=== PATIENT | male | born 1990 | race Two or more races ===

== ENCOUNTER 2018-07-03 12:10 | Emergency (ER) | payer MEDICAID ==
[~2018-07-03] VITALS: Ht 177.8 cm; Wt 81.6 kg
[2018-07-03 12:30] VITALS: BP 138/99
[2018-07-03] MEDS ORDERED: SODIUM CHLORIDE 0.9% 1,000 ML IVB ONE (12:43)
[2018-07-03 14:19] LABS: Basophils # (auto) 0 uL; Eosinophils # (auto) 0 uL; Eosinophils % (auto) 0.1 % (0.0-7.0)
[2018-07-03 14:20] LABS: Basophils % (auto) 0.3 % (0.0-2.0); Hematocrit 52.8 % (41.0-53.0); Hemoglobin 18.3 g/dL (13.5-17.5); Lymphocytes # (auto) 1.7 uL; Lymphocytes % (auto) 11.8 % (10.0-50.0); Mean Corpuscular Hemoglobin 30.9 pg (28.0-32.0); Mean Corpuscular Hgb Conc. 34.8 g/dL (32.0-36.0); Mean Corpuscular Volume 88.9 fL (80.0-100.0); Monocytes # (auto) 1.1 uL; Monocytes % (auto) 7.6 % (0.0-12.0); Neutrophils # (auto) 11.8 uL; Neutrophils % (auto) 80.2 % (37.0-80.0); Nucleated Red Blood Cells % 0.2 %; Platelet Count (auto) 322 10^3/uL (140-450); Red Blood Cells 5.94 10^6/uL (4.5-5.90); Red Cell Distribution Width 13.4 % (11.8-14.3); White Blood Cell 14.7 10^3/uL (4.4-10.8)
[2018-07-03 14:36] LABS: Albumin 4.7 g/dL (3.4-5.0); Anion Gap 5 (5-15); Blood Urea Nitrogen 21 mg/dL (7-18); Calcium 9.3 mg/dL (8.5-10.1); Carbon Dioxide 27 mmol/L (21-32); Chloride 103 mmol/L (98-107); Glucose 109 mg/dL (74-106); Magnesium 2.3 mg/dL (1.6-2.6); Potassium 3.7 mmol/L (3.5-5.1); Sodium 135 mmol/L (136-145)
[2018-07-03 14:45] LABS: Alanine Aminotransferase 66 U/L (16-61); Alkaline Phosphatase 89 U/L (45-117); Aspartate Aminotransferase 50 U/L (15-37); BUN/Creatinine Ratio 22.8; Bilirubin, Total 0.8 mg/dL (0.2-1.0); Blood Alcohol < 3.0 mg/dL (0-5); GFR African American 125 mL/min; GFR Non-African American 103 mL/min; Total Protein 8.9 g/dL (6.4-8.2)
== END 2018-07-03 21:57 | disposition home or self-care (01) ==
LOC: ER 12:10 → EDBD 12:10 → ER 21:57
DX: F19.10 Other psychoactive substance abuse, uncomplicated (principal); R10.9 Unspecified abdominal pain; R11.10 Vomiting, unspecified; F17.210 Nicotine dependence, cigarettes, uncomplicated; F12.90 Cannabis use, unspecified, uncomplicated
CPT/HCPCS: 36415; 70450; 80053; 80320; 83735; 85025; 93005

== ENCOUNTER 2019-02-14 17:59 | Emergency (ER) | payer MEDICAID ==
[~2019-02-14] VITALS: Ht 180.3 cm; Wt 74.8 kg
[2019-02-14] MEDS ORDERED: ACETAMINOPHEN/CODEINE#3 (300/30mg) TAB PO ONE (21:00)
[2019-02-14 22:50] VITALS: BP 104/54
== END 2019-02-14 23:06 | disposition home or self-care (01) ==
LOC: ER 17:59
DX: S52.202A Unspecified fracture of shaft of left ulna, initial encounter for closed fracture (principal); F17.210 Nicotine dependence, cigarettes, uncomplicated; F12.10 Cannabis abuse, uncomplicated; Y04.2XXA Assault by strike against or bumped into by another person, initial encounter; Y93.89 Activity, other specified; Y92.89 Other specified places as the place of occurrence of the external cause; Y99.8 Other external cause status
CPT/HCPCS: 29125; 73090; 73130

== ENCOUNTER 2020-11-07 22:51 | Emergency (ER) | payer MEDICAID ==
[~2020-11-07] VITALS: Ht 180.3 cm; Wt 63.5 kg
[2020-11-07 22:54] VITALS: BP 117/65
[2020-11-07 23:31] LABS: Basophils # (auto) 0 10 ^3/uL (0-0.2); Basophils % (auto) 0.3 % (0.0-2.0); Eosinophils # (auto) 0.1 10 ^3/uL (0-0.8); Hematocrit 39.2 % (41.0-53.0); Hemoglobin 13.2 g/dL (13.5-17.5); Lymphocytes # (auto) 2.7 10 ^3/uL (0.4-5.4); Lymphocytes % (auto) 37.9 % (10.0-50.0); Mean Corpuscular Hemoglobin 30.3 pg (28.0-32.0); Mean Corpuscular Hgb Conc. 33.7 g/dL (32.0-36.0); Monocytes # (auto) 0.9 10 ^3/uL (0-1.3); Monocytes % (auto) 12.5 % (0.0-12.0); Neutrophils # (auto) 3.4 10 ^3/uL (1.6-8.6); Neutrophils % (auto) 48.3 % (37.0-80.0); Nucleated Red Blood Cells % 0.2 %; Platelet Count (auto) 199 10^3/uL (140-450); Red Blood Cells 4.35 10^6/uL (4.5-5.90); Red Cell Distribution Width 13.1 % (11.8-14.3)
[2020-11-08] LABS: Albumin 3.1 g/dL (3.4-5.0); Potassium 3.7 mmol/L (3.5-5.1)
[2020-11-08 00:05] LABS: BUN/Creatinine Ratio 13.7; Bilirubin, Total 0.3 mg/dL (0.2-1.0); Total Protein 7.7 g/dL (6.4-8.2)
== END 2020-11-08 02:17 | disposition left against medical advice (07) ==
LOC: ER 22:57
DX: N50.812 Left testicular pain (principal); Z53.21 Procedure and treatment not carried out due to patient leaving prior to being seen by health care provider
CPT/HCPCS: 36415; 76870; 80053; 83605; 85025

== ENCOUNTER 2020-12-01 11:59 | Emergency (ER) | payer MEDICAID ==
[~2020-12-01] VITALS: Ht 177.8 cm; Wt 68.0 kg
[2020-12-01] MEDS ORDERED: SODIUM CHLORIDE 0.9% 1,000 ML IV ONE ×2 (12:15)
[2020-12-01] MEDS ORDERED: ACETAMINOPHEN 325 MG TAB PO ONE ×2 (13:00→13:01)
[2020-12-01 13:05] LABS: Basophils # (auto) 0 10 ^3/uL (0-0.2); Basophils % (auto) 0.5 % (0.0-2.0); Eosinophils # (auto) 0.1 10 ^3/uL (0-0.8); Eosinophils % (auto) 2.3 % (0.0-7.0); Hematocrit 34.8 % (41.0-53.0); Hemoglobin 12.1 g/dL (13.5-17.5); Lymphocytes # (auto) 3.3 10 ^3/uL (0.4-5.4); Lymphocytes % (auto) 52.7 % (10.0-50.0); Mean Corpuscular Hgb Conc. 34.8 g/dL (32.0-36.0); Mean Corpuscular Volume 89.2 fL (80.0-100.0); Monocytes # (auto) 0.8 10 ^3/uL (0-1.3); Monocytes % (auto) 12.3 % (0.0-12.0); Neutrophils % (auto) 32.2 % (37.0-80.0); Nucleated Red Blood Cells % 0.2 %; Platelet Count (auto) 147 10^3/uL (140-450); Red Cell Distribution Width 13.3 % (11.8-14.3); White Blood Cell 6.3 10^3/uL (4.4-10.8)
[2020-12-01 13:10] VITALS: BP 102/63
[2020-12-01 13:17] LABS: Urine Bacteria NONE SEEN /hpf (None Seen); Urine Blood Negative /uL (Negative); Urine Mucus FEW (None Seen); Urine Specific Gravity 1.019 (1.001-1.035); Urine WBC 1 /hpf (0 - 3)
[2020-12-01 13:22] LABS: BUN/Creatinine Ratio 14.1; Calcium 7.6 mg/dL (8.5-10.1); Potassium 3.4 mmol/L (3.5-5.1)
[2020-12-01 13:25] LABS: Bilirubin, Total 0.2 mg/dL (0.2-1.0); Total Protein 7.3 g/dL (6.4-8.2)
== END 2020-12-01 15:57 | disposition home or self-care (01) ==
LOC: EDUNIT# 11:59 → ER 11:59 → EDBD 11:59 → ER 15:47
DX: F41.9 Anxiety disorder, unspecified (principal); R53.1 Weakness; F17.210 Nicotine dependence, cigarettes, uncomplicated; R51.9 Headache, unspecified; M25.512 Pain in left shoulder
CPT/HCPCS: 36415; 70450; 71250; 73060; 80053; 81001; 85025; 85049; 96360; 96361; 99285; J7030

== ENCOUNTER 2020-12-06 17:30 | Emergency (ER) | payer MEDICAID ==
[~2020-12-06] VITALS: Ht 180.3 cm; Wt 68.0 kg
[2020-12-06 17:30] VITALS: BP 122/68
== END 2020-12-06 20:18 | disposition home or self-care (01) ==
LOC: ER 17:30
DX: F41.9 Anxiety disorder, unspecified (principal); F12.10 Cannabis abuse, uncomplicated; F15.10 Other stimulant abuse, uncomplicated; F17.210 Nicotine dependence, cigarettes, uncomplicated

== ENCOUNTER 2021-05-06 10:22 | Emergency (ER) | payer MEDICAID ==
[~2021-05-06] VITALS: Ht 165.1 cm; Wt 52.6 kg
[2021-05-06 10:32] VITALS: BP 107/70
[2021-05-06] MEDS ORDERED: PANTOPRAZOLE 40 MG TAB PO ONE (12:00)
[2021-05-06] MEDS ORDERED: ONDANSETRON ODT 4 MG TAB PO ONE (12:00)
[2021-05-06 12:11] LABS: Basophils # (auto) 0 10 ^3/uL (0-0.2); Basophils % (auto) 0.6 % (0.0-2.0); Eosinophils # (auto) 0.1 10 ^3/uL (0-0.8); Eosinophils % (auto) 1.5 % (0.0-7.0); Hemoglobin 12.9 g/dL (13.5-17.5); Lymphocytes # (auto) 1.7 10 ^3/uL (0.4-5.4); Lymphocytes % (auto) 25.4 % (10.0-50.0); Mean Corpuscular Hemoglobin 30.4 pg (28.0-32.0); Mean Corpuscular Hgb Conc. 33.9 g/dL (32.0-36.0); Mean Corpuscular Volume 89.5 fL (80.0-100.0); Monocytes # (auto) 0.8 10 ^3/uL (0-1.3); Monocytes % (auto) 11.5 % (0.0-12.0); Neutrophils # (auto) 4.2 10 ^3/uL (1.6-8.6); Nucleated Red Blood Cells % 0.2 %; Red Blood Cells 4.25 10^6/uL (4.5-5.90); Red Cell Distribution Width 13.2 % (11.8-14.3); White Blood Cell 6.9 10^3/uL (4.4-10.8)
[2021-05-06 12:58] LABS: Calcium 8.9 mg/dL (8.5-10.1); Potassium 4.1 mmol/L (3.5-5.1)
[2021-05-06 13:04] LABS: Albumin 2.9 g/dL (3.4-5.0); BUN/Creatinine Ratio 16.7; Bilirubin, Total 0.4 mg/dL (0.2-1.0); Total Protein 8.2 g/dL (6.4-8.2)
== END 2021-05-06 13:16 | disposition home or self-care (01) ==
LOC: ER 10:22
DX: K29.00 Acute gastritis without bleeding (principal); F17.210 Nicotine dependence, cigarettes, uncomplicated; F12.10 Cannabis abuse, uncomplicated; F15.10 Other stimulant abuse, uncomplicated
CPT/HCPCS: 36415; 80053; 83690; 85025; Q0162

== ENCOUNTER 2022-08-12 21:55 | Emergency (ER) | payer MEDICAID ==
[~2022-08-12] VITALS: Ht 180.3 cm; Wt 65.5 kg
[2022-08-12 22:40] VITALS: BP 103/45
[2022-08-12] MEDS ORDERED: KETOROLAC TROMETH 60MG/2ML VIAL IM ONE (22:45)
[2022-08-12 23:40] LABS: Urine Bacteria NONE SEEN /hpf (None Seen); Urine Blood Negative /uL (Negative); Urine Mucus FEW (None Seen); Urine Specific Gravity 1.031 (1.001-1.035); Urine WBC 2 /hpf (0 - 3)
[2022-08-12 23:56] LABS: Alcohol, Urine < 3.0 mg/dL (0-10); Amphetamine Screen, Urine POSITIVE (NEGATIVE); Barbiturate Scree,Urine NEGATIVE (NEGATIVE); Cannabinoid Screen, Urine NEGATIVE (NEGATIVE); Opiate Scree,Urine NEGATIVE (NEGATIVE); Phencyclidine Screen, Urine NEGATIVE (NEGATIVE)
[2022-08-13 00:04] LABS: Benzodiazephine Screen, Urine NEGATIVE (NEGATIVE); Cocaine Screen, Urine NEGATIVE (NEGATIVE)
== END 2022-08-12 23:33 | disposition left against medical advice (07) ==
LOC: ER 21:55
DX: R10.9 Unspecified abdominal pain (principal); Z87.442 Personal history of urinary calculi; Z87.891 Personal history of nicotine dependence
CPT/HCPCS: 74176; 80307; 81001

== ENCOUNTER 2022-11-13 12:25 | Emergency (ER) | payer MEDICAID ==
[~2022-11-13] VITALS: Ht 180.3 cm; Wt 63.8 kg
[2022-11-13 13:34] LABS: Basophils # (auto) 0.1 10 ^3/uL (0-0.2); Basophils % (auto) 0.6 % (0.0-2.0); Eosinophils # (auto) 0.5 10 ^3/uL (0-0.8); Eosinophils % (auto) 4.5 % (0.0-7.0); Hematocrit 43.8 % (41.0-53.0); Hemoglobin 14.8 g/dL (13.5-17.5); Lymphocytes # (auto) 2.9 10 ^3/uL (0.4-5.4); Lymphocytes % (auto) 26.9 % (10.0-50.0); Mean Corpuscular Hemoglobin 30.6 pg (28.0-32.0); Mean Corpuscular Hgb Conc. 33.8 g/dL (32.0-36.0); Mean Corpuscular Volume 90.4 fL (80.0-100.0); Monocytes # (auto) 0.9 10 ^3/uL (0-1.3); Monocytes % (auto) 8.5 % (0.0-12.0); Neutrophils # (auto) 6.4 10 ^3/uL (1.6-8.6); Neutrophils % (auto) 59.5 % (37.0-80.0); Nucleated Red Blood Cells % 0.1 %; Red Blood Cells 4.85 10^6/uL (4.5-5.90); Red Cell Distribution Width 14.2 % (11.8-14.3); White Blood Cell 10.7 10^3/uL (4.4-10.8)
[2022-11-13 13:47] VITALS: BP 115/76
[2022-11-13 14:10] LABS: Urine Bacteria NONE SEEN /hpf (None Seen); Urine Blood Negative /uL (Negative); Urine Mucus FEW (None Seen); Urine Specific Gravity 1.022 (1.001-1.035); Urine WBC 1 /hpf (0 - 3)
[2022-11-13 14:17] LABS: Albumin 3.9 g/dL (3.4-5.0); Calcium 8.9 mg/dL (8.5-10.1); Potassium 4.1 mmol/L (3.5-5.1)
[2022-11-13 14:21] LABS: BUN/Creatinine Ratio 15.9 (10.0-20.0); Bilirubin, Total 0.6 mg/dL (0.2-1.0); Total Protein 10.4 g/dL (6.4-8.2)
[2022-11-13] MEDS ORDERED: DICYCLOMINE HCL 10 MG CAP PO ONE (14:30)
[2022-11-13 14:32] LABS: Alcohol, Urine < 3.0 mg/dL (0-10); Barbiturate Scree,Urine NEGATIVE (NEGATIVE); Benzodiazephine Screen, Urine NEGATIVE (NEGATIVE)
[2022-11-13 14:39] LABS: Amphetamine Screen, Urine NEGATIVE (NEGATIVE); Cannabinoid Screen, Urine POSITIVE (NEGATIVE); Cocaine Screen, Urine NEGATIVE (NEGATIVE); Opiate Scree,Urine NEGATIVE (NEGATIVE); Phencyclidine Screen, Urine NEGATIVE (NEGATIVE)
[2022-11-13] MEDS ORDERED: DOCU-94 PO (16:59)
[2022-11-13] MEDS ORDERED: LACT10SO3 PO (16:59)
== END 2022-11-13 18:19 | disposition home or self-care (01) ==
LOC: ER 12:25
DX: K59.00 Constipation, unspecified (principal); F41.9 Anxiety disorder, unspecified; F17.210 Nicotine dependence, cigarettes, uncomplicated; R10.33 Periumbilical pain; Z86.19 Personal history of other infectious and parasitic diseases; Z88.8 Allergy status to other drugs, medicaments and biological substances; Z91.048 Other nonmedicinal substance allergy status
CPT/HCPCS: 36415; 74176; 80053; 80307; 81001; 85025

== ENCOUNTER → 2023-04-06 | Emergency (ER) | payer MEDICAID ==
[~2023-04-06] VITALS: Ht 180.3 cm; Wt 63.5 kg
[~2023-04-06] MED LIST: AZITHROMYCIN 500MG/ 250ML 250 ML IV ONE; DOCU-94 PO; LACT10SO3 PO; MORPHINE SULFATE 4 MG/ML SYR/VIAL IM ONE; cefTRIAXone 1GM/50ML D5W 50 ML IV ONE
[2023-04-06 01:50] VITALS: PULSE 88; RESP 18; O2SAT 100
[2023-04-06 02:09] LABS: Basophils # (auto) 0.1 10 ^3/uL (0-0.2); Basophils % (auto) 0.8 % (0.0-2.0); Eosinophils # (auto) 0.2 10 ^3/uL (0-0.8); Eosinophils % (auto) 2.3 % (0.0-7.0); Hematocrit 40.6 % (41.0-53.0); Lymphocytes # (auto) 2.8 10 ^3/uL (0.4-5.4); Lymphocytes % (auto) 38.9 % (10.0-50.0); Mean Corpuscular Hgb Conc. 34.5 g/dL (32.0-36.0); Mean Corpuscular Volume 92.6 fL (80.0-100.0); Monocytes # (auto) 0.9 10 ^3/uL (0-1.3); Monocytes % (auto) 12.1 % (0.0-12.0); Neutrophils # (auto) 3.2 10 ^3/uL (1.6-8.6); Neutrophils % (auto) 45.9 % (37.0-80.0); Nucleated Red Blood Cells % 0.1 %; Red Blood Cells 4.39 10^6/uL (4.5-5.90); Red Cell Distribution Width 15.8 % (11.8-14.3); White Blood Cell 7.1 10^3/uL (4.4-10.8)
[2023-04-06 02:18] LABS: Alanine Aminotransferase 45 U/L (7-40); Albumin 4.2 g/dL (3.2-4.8); Alkaline Phosphatase 138 U/L (46-116); Anion Gap 7 (5-15); Aspartate Aminotransferase 43 U/L (13-40); BUN/Creatinine Ratio 16.7 (10.0-20.0); Bilirubin, Total 0.4 mg/dL (0.2-1.0); Blood Alcohol < 3.0 mg/dL (<10); Blood Urea Nitrogen 16 mg/dL (9-23); Carbon Dioxide 25 mmol/L (20-30); Chloride 106 mmol/L (98-107); Glucose 91 mg/dL (74-106); Lipase 65 U/L (12-53); Potassium 4.3 mmol/L (3.5-5.1); Sodium 138 mmol/L (136-145); Total Protein 8.4 g/dL (5.7-8.2)
[2023-04-06 02:19] LABS: Acetaminophen < 2.0 UG/ML (10.0-20.0); Salicylate < 3.0 mg/dL (2.8-20.0)
[2023-04-06 06:12] VITALS: BP 116/71; PULSE 60; RESP 18; O2SAT 99
== END | disposition home or self-care (01) ==
LOC: EDUNIT# 00:14 → EDBD 00:19 → ER 00:19
DX: K85.10 Biliary acute pancreatitis without necrosis or infection (principal); J18.9 Pneumonia, unspecified organism; R91.8 Other nonspecific abnormal finding of lung field; F17.210 Nicotine dependence, cigarettes, uncomplicated; F12.10 Cannabis abuse, uncomplicated; F15.10 Other stimulant abuse, uncomplicated; Z88.6 Allergy status to analgesic agent
CPT/HCPCS: 36415; 74176; 80053; 80320; 80329; 83690; 85025; 96372; 99285; J0456; J0696; J2270

== ENCOUNTER 2023-05-23 13:06 | Inpatient (IN) | payer MEDICAID ==
[~2023-05-23] VITALS: Ht 172.7 cm; Wt 61.3 kg
[~2023-05-23 13:06] MED LIST changes: -AZITHROMYCIN 500MG/ 250ML 250 ML IV ONE; -MORPHINE SULFATE 4 MG/ML SYR/VIAL IM ONE; -cefTRIAXone 1GM/50ML D5W 50 ML IV ONE
[2023-05-23] MEDS ORDERED: fentaNYL CITRATE 100 MCG/2 ML VL IV ONE ×3 (13:15→16:00)
[2023-05-23] MEDS ORDERED: ONDANSETRON HCL 4 MG/2 ML VIAL IV ONE (13:15)
[2023-05-23] MEDS ORDERED: SODIUM CHLORIDE 0.9% 1,000 ML IV ONE ×2 (13:15→15:45)
[2023-05-23 13:28] VITALS: O2SAT 99
[2023-05-23 13:58] LABS: Basophils # (auto) 0 10 ^3/uL (0-0.2); Basophils % (auto) 0.5 % (0.0-2.0); Eosinophils # (auto) 0.1 10 ^3/uL (0-0.8); Eosinophils % (auto) 1.6 % (0.0-7.0); Hematocrit 43.9 % (41.0-53.0); Hemoglobin 14.7 g/dL (13.5-17.5); Lymphocytes # (auto) 2.1 10 ^3/uL (0.4-5.4); Lymphocytes % (auto) 30.1 % (10.0-50.0); Mean Corpuscular Hgb Conc. 33.5 g/dL (32.0-36.0); Mean Corpuscular Volume 92.7 fL (80.0-100.0); Monocytes # (auto) 0.6 10 ^3/uL (0-1.3); Monocytes % (auto) 8.8 % (0.0-12.0); Neutrophils # (auto) 4.1 10 ^3/uL (1.6-8.6); Nucleated Red Blood Cells % 0.1 %; Red Blood Cells 4.74 10^6/uL (4.5-5.90); Red Cell Distribution Width 13.7 % (11.8-14.3); White Blood Cell 6.9 10^3/uL (4.4-10.8)
[2023-05-23 14:16] LABS: Alanine Aminotransferase 106 U/L (7-40); Albumin 4.3 g/dL (3.2-4.8); Alkaline Phosphatase 182 U/L (46-116); Anion Gap 4 (5-15); Aspartate Aminotransferase 96 U/L (13-40); Bilirubin, Total 0.9 mg/dL (0.2-1.0); Blood Urea Nitrogen 13 mg/dL (9-23); Calcium 9.1 mg/dL (8.7-10.4); Carbon Dioxide 29 mmol/L (20-30); Chloride 103 mmol/L (98-107); Glucose 90 mg/dL (74-106); Potassium 4.6 mmol/L (3.5-5.1); Sodium 136 mmol/L (136-145); Total Protein 8.3 g/dL (5.7-8.2)
[2023-05-23 14:23] LABS: Lipase 1638 U/L (12-53)
[2023-05-23] MEDS ORDERED: SODIUM CHLORIDE 0.9% 1,000 ML IV SCH (15:45)
[2023-05-23] MEDS ORDERED: MORPHINE SULFATE INJ 2 MG/ml SYRG IV PRN (15:45)
[2023-05-23] MEDS ORDERED: ONDANSETRON HCL 4 MG/2 ML VIAL IV PRN (15:45)
[2023-05-23] MEDS ORDERED: PANTOPRAZOLE 40 MG/10 ML VIAL INJ IV ONE (15:45)
[2023-05-23] MEDS ORDERED: ACETAMINOPHEN 325 MG TAB PO PRN (15:45)
[2023-05-23 15:58] VITALS: BP 118/68; PULSE 56; RESP 20
[2023-05-24] MEDS ORDERED: PANTOPRAZOLE 40 MG/10 ML VIAL INJ IV SCH (10:00)
== END 2023-05-23 18:53 | disposition left against medical advice (07) ==
LOC: ER 13:06 → EDBD 13:06 → OVERFLOW 15:36
PROVIDERS: ADMIT Nurse Practitioner Family; ATTEND Nurse Practitioner Family
DX: K81.0 Acute cholecystitis (principal); K85.90 Acute pancreatitis without necrosis or infection, unspecified; Z53.29 Procedure and treatment not carried out because of patient's decision for other reasons; F17.210 Nicotine dependence, cigarettes, uncomplicated; Z83.3 Family history of diabetes mellitus; Z88.8 Allergy status to other drugs, medicaments and biological substances; Z21 Asymptomatic human immunodeficiency virus [HIV] infection status
CPT/HCPCS: 36415; 71045; 74176; 76705; 80053; 83605; 83690; 84484; 85025; 86850; 86900; 86901; C9113; G0378; J2405

== ENCOUNTER → 2023-09-28 | Emergency (ER) | payer MEDICAID | LOC: ER 01:14 | DX: R06.6 Hiccough (principal); Z53.21 Procedure and treatment not carried out due to patient leaving prior to being seen by health care provider ==

== ENCOUNTER 2025-03-04 01:29 | Inpatient (IN) | payer MEDICAID ==
[~2025-03-04] VITALS: Ht 172.7 cm; Wt 64.4 kg
--- NOTE | 2025-03-04 01:53 | ECG ---
[facility] Test Date: 2025-03-04 Test Time: 01:38:52 Pat Name: GARDENIA MCGHEE Department: [facility] ED Patient ID: [id number] Room: 0217 Gender: M First Aid Officer: MARGARET : 1990 Requested By: YVAN GARCIA Order Number: [id number] Reading MD: Norbert Moody Measurements Intervals [place] Rate: 144 P: 86 WA: 167 QRS: 102 QRSD: 89 T: -60 QT: 287 QTc: 444 Interpretive Statements Sinus tachycardia Right axis deviation Borderline repolarization abnormality Electronically Signed On 03-06-2025 22:10:41 PDT by Norbert Moody Please click the below link to view image of tracing.
[2025-03-04] MEDS: PIPERACILLIN-TAZOB 3.375GM 100 ML IV ONE (02:00)
[2025-03-04 02:02] VITALS: PULSE 58; RESP 14; O2SAT 95
--- NOTE | 2025-03-04 02:03 | ED.PDOC ---
Altered Mental Status HPI Comments 34-year-old male came to ER via EMS for altered level of consciousness. Patient last seen normal at 1600 hours. Was in his room when he was heard screaming. Patient was seen unresponsive and altered, responsive to sternal stimuli. Patient was said to be taking erythromycin for a urinary/ testicular infection. On scene patient is febrile to 101.6 F, tachycardic at the 130s, with a blood pressure of 180/63 mmHg. At this time, patient is aware only to his name. Chief Complaint: ALOC Time Seen by MD: 02:03 Primary Care Provider: NONE Reviewed Notes: Plateman Notes Allergies: Coded Allergies: Ethanol (Verified Allergy, Unknown, 08/12/22) Guaifenesin (Verified Allergy, Unknown, 08/12/22) Home Meds Active Scripts Docusate Sodium (Colace) 100 Mg Cap, 1 CAP PO BID, #30 CAP Prov:CARROLL CALDERA PAC 11/13/22 Lactulose (Lactulose) 10 Gm/15 Ml Yuni, 10 GM PO BIDP PRN, #150 ML Prov:CARROLL CALDERA PAC 11/13/22 Information Source: Emergency Med Personnel Mode of Arrival: EMS Severity: Unable to Care for Self, Unresponsive Timing: Minutes Duration: Since onset Prehospital treatment: Oxygen Quality: Decreased Alertness, Change in Behavior Past Medical History PAST MEDICAL HISTORY: Anxiety Surgical History: Denies all surgeries Family History Family History: Family hx of DM Social History Smoker: Cigarettes, Less Than 1 Pack/Day Alcohol: Occasionally Drugs: Marijuana, Methamphetamine Lives In: Home Unable to Obtain due to: Altered Mental Status Physical Exam General Appearance: No Apparent Distress, Normal HEENT: Normal ENT Inspection, Pharynx Normal, TMs Normal Neck: Full Range of Motion, Non-Tender, Normal, Normal Inspection Respiratory: Chest Non-Tender, Lungs Clear, No Accessory Muscle Use, No Respiratory Distress, Normal Breath Sounds Cardiovascular: No Edema, No JVD, No Murmur, No Gallop, Normal Peripheral Pulses, Regular Rate/Rhythm Breast Exam: Deferred Gastrointestinal: No Organomegaly, Non Tender, No Pulsatile Mass, Normal Bowel Sounds, Soft Genitalia: Deferred Pelvic: Deferred Rectal: Deferred Extremities: No calf tenderness, Normal capillary refill, Normal inspection, Normal range of motion, Non-tender, No pedal edema Musculoskeletal : Apperance: Normal Neurologic: Alert, inventory accountant II-XII nml as Tested, No Motor Deficits, Normal Affect, Normal Mood, No Sensory Deficits Cerebellar Function: Normal Reflexes: Normal Skin: Dry, Normal Color, Warm Lymphatic: No Adenopathy Was a procedure done? Was a procedure done?: No Differential Diagnosis (ALOC) Differential Diagnosis: Encephalopathy, Hypoxemia, Drug Overdose, ETOH Intoxication X-Ray, Labs, Meds, VS Vital Signs Date Time Temp Pulse Resp B/P (MAP) Pulse Ox O2 Delivery O2 Flow Rate FiO2 03/04/25 01:59 128 03/04/25 01:42 101.6 136 17 108/76 96 101.6 03/04/25 01:38 144 Lab Test 03/04/25 02:22 03/04/25 02:17 Range/Units White Blood Count 8.3 4.4-10.8 10^3/uL Red Blood Count 4.66 4.5-5.90 10^6/uL Hemoglobin 14.1 13.5-17.5 g/dL Hematocrit 41.5 41.0-53.0 % Mean Corpuscular Volume 89.0 80.0-100.0 fL Mean Corpuscular Hemoglobin 30.2 28.0-32.0 pg Mean Corpuscular Hemoglobin Concent 34.0 32.0-36.0 g/dL Red Cell Distribution Width 13.8 11.8-14.3 % Platelet Count 284 140-450 10^3/uL Mean Platelet Volume 6.5 L 6.9-10.8 fL Neutrophils (%) (Auto) 62.4 37.0-80.0 % Lymphocytes (%) (Auto) 25.2 10.0-50.0 % Monocytes (%) (Auto) 11.2 0.0-12.0 % Eosinophils (%) (Auto) 0.8 0.0-7.0 % Basophils (%) (Auto) 0.4 0.0-2.0 % Neutrophils # (Auto) 5.2 1.6-8.6 10 ^3/uL Lymphocytes # (Auto) 2.1 0.4-5.4 10 ^3/uL Monocytes # (Auto) 0.9 0-1.3 10 ^3/uL Eosinophils # (Auto) 0.1 0-0.8 10 ^3/uL Basophils # (Auto) 0 0-0.2 10 ^3/uL Nucleated Red Blood Cells 0.3 % Sodium Level 141 136-145 mmol/L Potassium Level 4.3 3.5-5.1 mmol/L Chloride Level 105 98-107 mmol/L Carbon Dioxide Level 22 20-31 mmol/L Anion Gap 14 5-15 Blood Urea Nitrogen 13 9-23 mg/dL Creatinine 1.16 0.700-1.30 mg/dL Glomerular Filtration Rate Calc 84 >90 mL/min BUN/Creatinine Ratio 11.2 10.0-20.0 Serum Glucose 90 74-106 mg/dL Lactic Acid Level 5.9 *H 0.4-2.0 mmol/L Calcium Level 8.6 L 8.7-10.4 mg/dL Total Bilirubin 0.7 0.2-1.0 mg/dL Aspartate Amino Transferase (AST) 44 H 13-40 U/L Alanine Aminotransferase (ALT) 47 H 7-40 U/L Alkaline Phosphatase 95 46-116 U/L Total Protein 8.9 H 5.7-8.2 g/dL Albumin 4.2 3.2-4.8 g/dL Lipase 30 12-53 U/L Urine Color Yellow Yellow Urine Clarity Clear Clear Urine pH 6.0 5.0-9.0 Urine Specific [place] 1.024 1.001-1.035 Urine Protein Trace H Negative Urine Ketones Negative Negative Urine Blood Trace H Negative /uL Urine Nitrite Negative Negative Urine Bilirubin Negative Negative Urine Urobilinogen Normal Negative mg/dL Urine Leukocyte Esterase 3+ Negative /uL Urine RBC 3 0 - 3 /hpf Urine Microscopic WBC 63 H 0-3 /HPF Urine Squamous Epithelial Cells Few <5 /hpf Urine Bacteria None seen None Seen /hpf Urine Mucus Few None Seen Urine Glucose Normal Normal mg/dL Urine Opiates Screen Pos NEGATIVE Urine Fentanyl Screen Neg NEGATIVE Urine Barbiturates Screen Neg NEGATIVE Urine Phencyclidine Screen Neg NEGATIVE Urine Amphetamines Screen Pos NEGATIVE Urine Benzodiazepines Screen Neg NEGATIVE Urine Cocaine Screen Neg NEGATIVE Urine Cannabinoids Screen Pos NEGATIVE Current Medications Medications (Trade) Dose Ordered Sig/Jose Route Start Time Stop Time Status Last Admin Sodium Chloride 1,000 ml @ 1,000 mls/hr Q1H ONCE IVB 03/04/25 02:00 03/04/25 02:59 DC 03/04/25 02:17 Acetaminophen (Ofirmev) 1,000 mg ONCE ONCE IV 03/04/25 02:00 03/04/25 02:01 DC 03/04/25 02:24 Piperacillin Sod/ Tazobactam Sod 100 ml @ 100 mls/hr ONCE ONCE IV 03/04/25 02:00 03/04/25 02:59 DC 03/04/25 02:00 Sodium Chloride 1,000 ml @ 1,000 mls/hr Q1H ONCE IV 03/04/25 03:15 03/04/25 04:14 DC 03/04/25 03:43 Sodium Chloride 1,000 ml @ 1,000 mls/hr Q1H ONCE IV 03/04/25 04:15 03/04/25 05:14 03/04/25 04:17 Time of 1ST Reevaluation: 01:57 Reevaluation 1ST: Unchanged Patient Education/Counseling: Pt Unresponsive Family Education/Counseling: No Family Present SEPSIS Sepsis Screen Date sepsis recognized/suspect: Mar 04, 2025 Time Sepsis recognized/suspect: 014 Recent Procedure: No On Antibiotic Therapy: Yes Respiratory Rate >20: No Heart Rate >90: Yes Temp<36 C (96.8 F) or >38.3 C: Yes SBP <90 or MAP <65 mmHG: No New Acute Mental Status Change: Yes Is the patient on CPAP, BIPAP,: No Physician Orders Ct Ab Pel With Iv Con Only (03/04/25 01:49) Blood Culture (03/04/25 01:49) Head Without Contrast (03/04/25 01:49) Straight Cath Patient (03/04/25 01:49) Yskes Catheters (03/04/25 ) Insert Sykes Catheter QSHIFT (03/04/25 02:13) Sodium Chloride 0.9% (03/04/25 04:15) Azithromycin 500mg/ 250ml (Zithromax 50 (03/04/25 04:30) Vital Signs Date Time Temp Pulse Resp B/P (MAP) Pulse Ox O2 Delivery O2 Flow Rate FiO2 03/04/25 01:59 128 03/04/25 01:42 101.6 136 17 108/76 96 101.6 03/04/25 01:38 144 Laboratory Tests Test 03/04/25 02:22 Lactic Acid Level 5.9 mmol/L (0.4-2.0) *H White Blood Count 8.3 10^3/uL (4.4-10.8) Medications Medications Dose Ordered Sig/Jose Route Start Time Stop Time Status Last Admin Dose Admin Acetaminophen 1,000 mg ONCE ONCE IV 03/04/25 02:00 03/04/25 02:01 DC 03/04/25 02:24 Piperacillin Sod/ Tazobactam Sod 100 ml @ 100 mls/hr ONCE ONCE IV 03/04/25 02:00 03/04/25 02:59 DC 03/04/25 02:00 Sodium Chloride 1,000 ml @ 1,000 mls/hr Q1H ONCE IV 03/04/25 03:15 03/04/25 04:14 DC 03/04/25 03:43 Sodium Chloride 1,000 ml @ 1,000 mls/hr Q1H ONCE IV 03/04/25 04:15 03/04/25 05:14 03/04/25 04:17 Sodium Chloride 1,000 ml @ 1,000 mls/hr Q1H ONCE IVB 03/04/25 02:00 03/04/25 02:59 DC 03/04/25 02:17 Departure 1 Departure Time of Disposition: 04:30 Impression: Primary Impression: Metabolic encephalopathy Additional Impressions: Right lower lobe consolidation Pneumonitis UTI (urinary tract infection) Disposition: ADMITTED INPATIENT Admit to: ICU Condition: Guarded Discharged With: Self, Relative Comments 44-year-old male with a history of recent epididymitis and methamphetamine abuse now with altered mental status and fever. Lab work reviewed. Urinalysis shows UTI with 3+ leukocytes. Lactic acid high at 5.9. White blood cell count normal at 8.3. CT of the abdomen and pelvis shows a right lower lobe lung consolidation consistent with pneumonia. Patient was given IV fluid resuscitation and IV Zosyn and azithromycin antibiotics. Patient will need to be admitted for supportive care and further workup. Critical Care Note Critical Care Time?: Yes (35 min-critical care time only) Critical care comment: Total critical care time: Approximately 36 minutes Due to a high probability of clinically significant, life threatening deterioration, the patient required my highest level of preparedness to intervene emergently and I personally spent this critical care time directly and personally managing the patient. This critical care time included obtaining a history; examining the patient; pulse oximetry; ordering and review of studies; arranging urgent treatment with development of a management plan; evaluation of patient's response to treatment; frequent reassessment; and, discussions with other providers. This critical care time was performed to assess and manage the high probability of imminent, life-threatening deterioration that could result in multi-organ failure. It was exclusive of separately billable procedures and treating other patients. Stability Stability form required: No Heart Score Heart Score: Heart Score Response (Comments) Value History N/A 0 EKG N/A 0 Age N/A 0 Risk Factors N/A 0 Troponin N/A 0 Total 0 I personally scribed for YVAN GARCIA MD ([email or web address]) on 03/04/25 at 02:03. Electronically submitted by Tonny Pinon ([email or web address]). YVAN GARCIA MD Mar 04, 2025 02:03
[2025-03-04] MEDS: SODIUM CHLORIDE 0.9% 1,000 ML IVB ONE (02:17)
[2025-03-04] MEDS: ACETAMINOPHEN IV 1000 MG/100ML (10MG/ML) IV ONE (02:24)
[2025-03-04 02:59] LABS: Albumin 4.2 g/dL (3.2-4.8); Alkaline Phosphatase 95 U/L (46-116); BUN/Creatinine Ratio 11.2 (10.0-20.0); Blood Urea Nitrogen 13 mg/dL (9-23); Carbon Dioxide 22 mmol/L (20-31); Glucose 90 mg/dL (74-106); Lipase 30 U/L (12-53)
[2025-03-04 03:00] LABS: Bilirubin, Total 0.7 mg/dL (0.2-1.0)
[2025-03-04 03:01] LABS: Urine Protein, UAD TRACE (Negative)
[2025-03-04 03:01] LABS: Hematocrit 41.5 % (41.0-53.0); Hemoglobin 14.1 g/dL (13.5-17.5); Mean Corpuscular Hemoglobin 30.2 pg (28.0-32.0); Mean Corpuscular Volume 89.0 fL (80.0-100.0); Nucleated Red Blood Cells % 0.3 %
[2025-03-04 03:04] LABS: Lactic Acid w/Reflex 5.9 mmol/L (0.4-2.0)
[2025-03-04 03:05] LABS: Alanine Aminotransferase 47 U/L (7-40); Calcium 8.6 mg/dL (8.7-10.4); Total Protein 8.9 g/dL (5.7-8.2)
[2025-03-04 03:16] LABS: Anion Gap 14 (5-15); Chloride 105 mmol/L (98-107); Potassium 4.3 mmol/L (3.5-5.1); Sodium 141 mmol/L (136-145)
[2025-03-04] MEDS: IOHEXOL 300 MG/ML 100ML BOTTLE IJ ONE (03:37)
[2025-03-04 03:39] LABS: Cannabinoid Screen, Urine Pos (NEGATIVE); Opiate Scree,Urine Pos (NEGATIVE)
[2025-03-04 03:40] LABS: Amphetamine Screen, Urine Pos (NEGATIVE); Barbiturate Scree,Urine Neg (NEGATIVE); Benzodiazephine Screen, Urine Neg (NEGATIVE); Cocaine Screen, Urine Neg (NEGATIVE); Phencyclidine Screen, Urine Neg (NEGATIVE)
[2025-03-04] MEDS: SODIUM CHLORIDE 0.9% 1,000 ML IV ONE ×4 (03:43→10:58)
--- NOTE | 2025-03-04 03:44 | DVH ---
EXAM: CT HEAD WITHOUT CONTRAST INDICATION: ALOC, fever TECHNIQUE: CT of the head without intravenous contrast. Radiation Dose : 1. Head: CT Dose: CTDI volume is 50.77 mGy. Dose-length product is 1098.92 mGy*cm The dose indicators for CT are the volume Computed Tomography (CT) Dose Index (CTDIvol) and the Dose Length Product (DLP), and are measured in units of mGy and mGy-cm, respectively. These indicators are not patient dose, but values generated from the CT scanner acquisition factors. The report includes radiation exposure data for exposures received during this examination. COMPARISON: HEAD WITHOUT CONTRAST on DOS: 12/01/20 FINDINGS: There is no evidence of acute intracranial hemorrhage, extra-axial collection, mass effect, midline s hift, herniation or hydrocephalus. The ventricles, sulci and cisterns are age appropriate. The rodriguez-white differentiation is intact. Left sphenoid and ethmoid mucosal sinus disease. The remaining visualized paranasal sinuses and masto id air cells are clear. The surrounding soft tissues and osseous structures are unremarkable. IMPRESSION: 1. No acute intracranial abnormality. Radiation optimization: All CT scans at this facility use at least one of these dose optimization liborio hniques: automated exposure control mA and/or kV adjustment per patient size (includes targeted exam s where dose is matched to clinical indication) or iterative reconstruction.
--- NOTE | 2025-03-04 04:16 | DVH ---
Exam: CT CT AB PEL WITH IV CON ONLY History: abd pain, fever Comparison Study: Scan of the abdomen pelvis performed on 05/23/2023 Technique: Multidetector spiral CT of the abdomen was performed from lung bases to pubic symphysis. A xial imaging was performed with intravenous contrast following the uneventful administration of 100 m l Omnipaque 300. Coronal and sagittal multiplanar reformats were obtained from the axial data set by the technologist. Radiation Dose : 1. Abdomen/Pelvis: CTDIvol 5.1 mGy, DLP 300.8 mGy*cm. Findings: There is artifact from the patient's arms which limits evaluation. Lung Bases: There is right lower lobe consolidation. Visualized portions of the heart and pericardium are unremarkable. Liver: The liver is normal in size. No focal lesions. Gallbladder and Biliary Tree: The gallbladder is distended. No intrahepatic or extrahepatic biliary d uctal dilatation. Spleen: Multiple splenic calcifications noted. Pancreas: The pancreas enhances normally without evidence of mass. No pancreatic ductal dilatation. Calcifications noted either anterior to or within the pancreatic body. Adrenal Glands: Unremarkable Kidneys: Kidneys enhance symmetrically. No calculi or hydronephrosis. GI tract: The stomach is grossly normal in appearance.. No evidence of small bowel wall thickening or abnormal dilatation to suggest bowel obstruction. Diffuse stool throughout the colon. The appendix i s not visualized, however no inflammatory changes in the right lower quadrant to suggest acute append icitis. Peritoneum/mesentery/retroperitoneum. No evidence of free intraperitoneal air. No ascites. No evidenc e of suspicious lymphadenopathy. Abdominal Wall: Unremarkable. Vasculature: Abdominal aorta and main branches are unremarkable. Normal vascular enhancement. Urinary Bladder: There is a Sykes catheter in the urinary bladder. Pelvic Organs: Unremarkable Musculoskeletal: No aggressive focal bony lesions, acute fractures or dislocation. IMPRESSION: 1. Study limited by patient's arms which causes artifact. 2. Right lower lobe consolidation which could reflect pneumonia in the appropriate clinical setting. 3. Diffuse stool throughout the colon. 4. Old granulomatous disease in the spleen. 5. Distended gallbladder. 6. Calcifications either anterior to or within the pancreatic tail. Findings could reflect sequelae of chronic pancreatitis if within the pancreas.
--- NOTE | 2025-03-04 04:57 | DVHHPRES ---
History of Present Illness Resident Creating Document: JOSEFINA MONTENEGRO RESIDENT History of Present Illness Paresh Hernandez is a 34-year-old male patient who presents to ED brought via EMS due to altered level of consciousness. Due to clinical status, obtained information from EMR. Patient was last seen normal on 03/03/2025 at 4:00 p.m.. He was then found unresponsive in altered only responding to sternal rub stimulus. Per EMR, patient was on erythromycin due to urinary tract infection versus testicular infection. On scene he was found febrile, tachycardic and with hypertension. In ED his Jaelyn score was nine, we will respond to painful stimulus (with scream and become verbal when Sykes catheter was placed). Could not obtain review of systems due to clinical status. Past medical history: Anxiety, UTI versus testicular infection on erythromycin, questionable HIV/syphilis infection Surgical history: Denies Family history: All his family has diabetes Social history: Lives with family. UDS positive for methamphetamine, cannabinoids and opiates. Per chart he smokes less than one pack of cigarettes a day. Allergies: Ethanol, guaifenesin Home medication: Bisillin, Cabenuva, erythromycin Patient seen and examined at bedside. Currently his blood pressure is trending low, vasopressors on standby, still somnolent, responds to sternal rub in partially verbalizes answers. Currently patient is ICU status. Past Medical History Per HPI Past Surgical History Per HPI Family History Per HPI Past Social History Per HPI Review of Systems Review of Systems Per HPI Allergies: Coded Allergies: Ethanol (Verified Allergy, Unknown, 08/12/22) Guaifenesin (Verified Allergy, Unknown, 08/12/22) Exam Vital Signs Vital Signs Date Time Temp Pulse Resp B/P (MAP) Pulse Ox O2 Delivery O2 Flow Rate FiO2 03/04/25 01:59 128 03/04/25 01:42 101.6 17 108/76 96 101.6 Exam Patient lying in bed, in no acute distress General: Drowsy, somnolent, afebrile, mucosae are moist Cardiovascular: Normal S1 and S2. No murmurs, gallops or rubs Respiratory: Normal ventilation mechanics. Clear lung sounds on auscultation Abdomen: Soft, diffuse tenderness in all abdomen, no organomegaly, normal bowel sounds MSK/skin: Mobilizes 4 limbs. Skin is dry and warm Neurological: Oriented in 1 spheres (only in person), Jaelyn score nine. No motor no sensitive deficits. Pupils are isocoric and reactive Labs/Xrays Labs Test 03/04/25 04:25 03/04/25 02:22 03/04/25 02:17 Range/Units White Blood Count 8.3 4.4-10.8 10^3/uL Red Blood Count 4.66 4.5-5.90 10^6/uL Hemoglobin 14.1 13.5-17.5 g/dL Hematocrit 41.5 41.0-53.0 % Mean Corpuscular Volume 89.0 80.0-100.0 fL Mean Corpuscular Hemoglobin 30.2 28.0-32.0 pg Mean Corpuscular Hemoglobin Concent 34.0 32.0-36.0 g/dL Red Cell Distribution Width 13.8 11.8-14.3 % Platelet Count 284 140-450 10^3/uL Mean Platelet Volume 6.5 L 6.9-10.8 fL Neutrophils (%) (Auto) 62.4 37.0-80.0 % Lymphocytes (%) (Auto) 25.2 10.0-50.0 % Monocytes (%) (Auto) 11.2 0.0-12.0 % Eosinophils (%) (Auto) 0.8 0.0-7.0 % Basophils (%) (Auto) 0.4 0.0-2.0 % Neutrophils # (Auto) 5.2 1.6-8.6 10 ^3/uL Lymphocytes # (Auto) 2.1 0.4-5.4 10 ^3/uL Monocytes # (Auto) 0.9 0-1.3 10 ^3/uL Eosinophils # (Auto) 0.1 0-0.8 10 ^3/uL Basophils # (Auto) 0 0-0.2 10 ^3/uL Nucleated Red Blood Cells 0.3 % Sodium Level 141 136-145 mmol/L Potassium Level 4.3 3.5-5.1 mmol/L Chloride Level 105 98-107 mmol/L Carbon Dioxide Level 22 20-31 mmol/L Anion Gap 14 5-15 Blood Urea Nitrogen 13 9-23 mg/dL Creatinine 1.16 0.700-1.30 mg/dL Glomerular Filtration Rate Calc 84 >90 mL/min BUN/Creatinine Ratio 11.2 10.0-20.0 Serum Glucose 90 74-106 mg/dL Calcium Level 8.6 L 8.7-10.4 mg/dL Total Bilirubin 0.7 0.2-1.0 mg/dL Aspartate Amino Transferase (AST) 44 H 13-40 U/L Alanine Aminotransferase (ALT) 47 H 7-40 U/L Alkaline Phosphatase 95 46-116 U/L Total Protein 8.9 H 5.7-8.2 g/dL Albumin 4.2 3.2-4.8 g/dL Lipase 30 12-53 U/L Urine Color Yellow Yellow Urine Clarity Clear Clear Urine pH 6.0 5.0-9.0 Urine Specific [place] 1.024 1.001-1.035 Urine Protein Trace H Negative Urine Ketones Negative Negative Urine Blood Trace H Negative /uL Urine Nitrite Negative Negative Urine Bilirubin Negative Negative Urine Urobilinogen Normal Negative mg/dL Urine Leukocyte Esterase 3+ Negative /uL Urine RBC 3 0 - 3 /hpf Urine Microscopic WBC 63 H 0-3 /HPF Urine Squamous Epithelial Cells Few <5 /hpf Urine Bacteria None seen None Seen /hpf Urine Mucus Few None Seen Urine Glucose Normal Normal mg/dL Urine Opiates Screen Pos NEGATIVE Urine Fentanyl Screen Neg NEGATIVE Urine Barbiturates Screen Neg NEGATIVE Urine Phencyclidine Screen Neg NEGATIVE Urine Amphetamines Screen Pos NEGATIVE Urine Benzodiazepines Screen Neg NEGATIVE Urine Cocaine Screen Neg NEGATIVE Urine Cannabinoids Screen Pos NEGATIVE SEPSIS Sepsis Screen Date sepsis recognized/suspect: Mar 04, 2025 Time Sepsis recognized/suspect: 0149 Recent Procedure: No On Antibiotic Therapy: Yes Respiratory Rate >20: No Heart Rate >90: Yes Temp<36 C (96.8 F) or >38.3 C: Yes SBP <90 or MAP <65 mmHG: No New Acute Mental Status Change: Yes Is the patient on CPAP, BIPAP,: No Physician Orders Ct Ab Pel With Iv Con Only (03/04/25 01:49) Blood Culture (03/04/25 01:49) Head Without Contrast (03/04/25 01:49) Straight Cath Patient (03/04/25 01:49) Sykes Catheters (03/04/25 ) Insert Sykes Catheter QSHIFT (03/04/25 02:13) Sodium Chloride 0.9% (03/04/25 04:15) Azithromycin 500mg/ 250ml (Zithromax 50 (03/04/25 04:30) Vital Signs Date Time Temp Pulse Resp B/P (MAP) Pulse Ox O2 Delivery O2 Flow Rate FiO2 03/04/25 01:59 128 03/04/25 01:42 101.6 136 17 108/76 96 101.6 03/04/25 01:38 144 Laboratory Tests Test 03/04/25 02:22 03/04/25 04:25 Lactic Acid Level 5.9 mmol/L (0.4-2.0) *H Pending White Blood Count 8.3 10^3/uL (4.4-10.8) Medications Medications Dose Ordered Sig/Jose Route Start Time Stop Time Status Last Admin Dose Admin Acetaminophen 1,000 mg ONCE ONCE IV 03/04/25 02:00 03/04/25 02:01 DC 03/04/25 02:24 1,000 MG Piperacillin Sod/ Tazobactam Sod 100 ml @ 100 mls/hr ONCE ONCE IV 03/04/25 02:00 03/04/25 02:59 DC 03/04/25 02:00 100 MLS/HR Sodium Chloride 1,000 ml @ 1,000 mls/hr Q1H ONCE IV 03/04/25 03:15 03/04/25 04:14 DC 03/04/25 03:43 1,000 MLS/HR Sodium Chloride 1,000 ml @ 1,000 mls/hr Q1H ONCE IV 03/04/25 04:15 03/04/25 05:14 03/04/25 04:17 1,000 MLS/HR Sodium Chloride 1,000 ml @ 1,000 mls/hr Q1H ONCE IVB 03/04/25 02:00 03/04/25 02:59 DC 03/04/25 02:17 1,000 MLS/HR Assessment/Plan Assessment/Plan Metabolic versus toxic encephalopathy Sepsis probable aspiration pneumonia vs UTI vs meningitis Aspiration PNA Gram-positive/Gram-negative UTI versus orchitis versus epididymitis Questionable HIV and syphilis Ruled out pancreatitis Hyperlacticacidemia-resolved Patient currently under empiric IV antibiotic (ceftriaxone, vancomycin and acyclovir) Gave dexamethasone Ordered [place]ster cultures (glaucoma urine, sputum and LP) Consulted interventional Radiology to obtain lumbar puncture Obtain abdomen and pelvis CT which showed right lower lobe pneumonia, old granuloma in the spleen, distended gallbladder and calcification pancreatic tail on his UDS is positive for opiates, methamphetamine and cannabinoids Urinalysis positive for UTI Polysubstance abuse Counseled strongly on cessation for over a 16 minutes Patient's altered to discussed goals of care. Per EMR family was at bedside and wanted full code status. Tried to call mother but did not pecan picker the phone. He will be consuming full code status at this time Discussed plan with Dr. Burns, bile duct dilation patient and nurses: GI currently ICU status due to soft blood pressure and mentation. Continue with IV fluid resuscitation, empiric IV antibiotics, and monitoring. Bleeding ordered hypokalemia Radiology consult for lumbar puncture. Patient has poor prognosis Plan discussed with: Patient, Other (Nurses. Mother did not answer phone call) Date of Service: Mar 04, 2025 Billing Provider: SELVIN BURNS Common Visit Codes: 08128-ALXRITE INP/OBS CARE (HIGH) Secondary Visit Codes: 67807-GBMBTPRH CARE PLAN 30 MINUTES JOSEFINA MONTENEGRO RESIDENT Mar 04, 2025 04:57
[2025-03-04] MEDS ORDERED: ONDANSETRON HCL 4 MG/2 ML VIAL IV PRN (05:00)
[2025-03-04] MEDS ORDERED: MORPHINE SULFATE INJ 2 MG/ml SYRG IV PRN (05:00)
[2025-03-04] MEDS: AZITHROMYCIN 500MG/ 250ML 250 ML IV ONE (05:11)
[2025-03-04 05:39] LABS: Triglycerides 80.0 mg/dL (< 150)
[2025-03-04 05:40] LABS: Magnesium 2.2 mg/dL (1.6-2.6)
[2025-03-04 05:41] LABS: Cholesterol 125.0 mg/dL (< 200); INR 1.05 (0.9-1.15); Partial Thromboplastin Time 29.7 SEC (24.5-34.5); Prothrombin Time 11.1 sec (9.3-11.8)
[2025-03-04 05:55] VITALS: PULSE 84; RESP 10; O2SAT 97
[2025-03-04] MEDS ORDERED: VANCOMYCIN PER PHARMACY 0 MG IV SCH (06:00)
[2025-03-04] MEDS ORDERED: PIPERACILLIN-TAZOB 3.375GM 100 ML IV SCH (06:00)
[2025-03-04 06:01] LABS: HDL Cholesterol 38.0 mg/dL (40-59)
[2025-03-04] MEDS ORDERED: ACYCLOVIR 10MG/KG Q8HR PER RX 0 ML IV SCH (06:15)
[2025-03-04] MEDS: NOREPINEPHRINE 8 MG/250ML KIT 250 ML IV SCH (06:15)
[2025-03-04] MEDS ORDERED: D5W 5% IV SCH (07:00)
[2025-03-04] MEDS ORDERED: ACYCLOVIR SOD IV SCH (07:00)
[2025-03-04 07:05] LABS: COVID19 ANTIGEN SOFIA FIA NEGATIVE (NEGATIVE)
[2025-03-04 07:15] VITALS: PULSE 75; RESP 12; O2SAT 97
[2025-03-04] MEDS: SODIUM CHLORIDE 0.9% 1,000 ML IV SCH (08:19)
[2025-03-04] MEDS: D5W 5% IV SCH (10:06)
[2025-03-04] MEDS: ENOXAPARIN SOD 40 MG/0.4 ML SYRINGE SC SCH (10:06)
[2025-03-04] MEDS: ACYCLOVIR SOD IV SCH (10:06)
--- NOTE | 2025-03-04 10:51 | DVHPNRES ---
Progress Note Date Seen: Mar 04, 2025 Resident Creating Document: SEAN BULLARD RESIDENT Medical Necessity Reason Pt with a Central, PICC or Fol: Yes The following are medically ne: Sykes Catheter Subjective Review of Systems This is a 34-year-old male brought by EMS to ER due to altered level of consciousness. Due to clinical status, information obtained from EMR. As per EMS, patient found altered and only responding to painful stimulus like sternal rub. Patient history of UTI and took antibiotic Erythromycin. During admission patient become febrile, tachycardic and low blood pressure 87/49(MAP less than 65) and [place] coma scale 9. Levophed started and continue monitor patient. In ER during examination patient, patient responds to loud voice, confused disoriented and motor response to localized pain. Jaelyn coma scale 12. USG 05/23/2025-Borderline dilated gallbladder with cholelithiasis and reportedly positive sonographic Pennington's sign concerning for developing acute cholecystitis. Intrahepatic biliary ductal dilation. Called [facility] number but unable to reach. CT head show no intracranial hemorrhage. CT abdomen and pelvis: Distended gallbladder, calcification either anterior or within the pancreatic tail, old granulomatous disease in the spleen. PCP: Unknown Allergy: Ethanol, guaifenesin PAST MEDICAL HISTORY: Anxiety Surgical History: Denies all surgeries Family History: Family hx of DM Smoker: Cigarettes, Less Than 1 Pack/Day Alcohol: Occasionally Drugs: Marijuana, Methamphetamine Lives In: Home Home medication: Unknown Objective vital signs Vital Sign Date Time Temp Pulse Resp B/P (MAP) Pulse Ox O2 Delivery O2 Flow Rate FiO2 03/04/25 09:15 80 11 107/71 (83) 97 03/04/25 07:15 Room Air* 0 21 03/04/25 07:15 97.8 97.8 Total Intake and Output 03/03/25 03/03/25 03/04/25 15:00 23:00 07:00 Intake Total 3225 ml Balance 3225 ml medications Current Medications Medications Dose Ordered Sig/Jose Route Start Time Stop Time Status Last Admin Dose Admin Norepinephrine Bitartrate 250 ml @ 3.75 mls/hr Q24H IV 03/04/25 05:00 03/04/25 06:15 3.75 MLS/HR Acetaminophen 650 mg Q6HP PRN PO 03/04/25 05:00 Ondansetron HCl 4 mg Q4HP PRN IV 03/04/25 05:00 Morphine Sulfate 2 mg Q4HPRN PRN IV 03/04/25 05:00 Enoxaparin Sodium 40 mg DAILY SC 03/04/25 10:00 03/04/25 10:06 40 MG Vancomycin HCl 0 ml @ 0 mls/hr UD IV 03/04/25 06:00 Sodium Chloride 1,000 ml @ 75 mls/hr [id number] IV 03/04/25 06:00 03/04/25 08:19 75 MLS/HR Ceftriaxone Sodium/Dextrose 50 ml @ 50 mls/hr Q12HR@09,21 IV 03/04/25 09:00 03/04/25 09:19 50 MLS/HR Acyclovir Sodium 0 ml @ 0 mls/hr PER PHARMACY IV 03/04/25 06:15 Dexamethasone Sodium Phosphate 10 mg/Dextrose 51 ml @ 204 mls/hr DAILY IV 03/04/25 10:00 Acyclovir Sodium 680 mg/Dextrose 113.6 ml @ 113.6 mls/ hr Q8H IV 03/04/25 10:00 03/04/25 10:06 113.6 MLS/HR Vancomycin HCl 250 ml @ 250 mls/hr Q12H IV 03/04/25 20:00 Examination Constitutional: Patient currently on bed, confused not oriented to time and place Eyes: No Conjunctivae inflammation, negative for photophobia ENT: No Ear discharge, Nose discharge Respiratory: No Shortness of breath with excertion, Wheezing, Hemoptysis, Cardiovascular: S1-S2 audible and heart rate regular, no murmurs Gastrointestinal: Abdomen soft nontender and bowel sounds present Genitourinary: Catheter in place and no hematuria noted on urine Musculoskeletal: No local joint rigidity, neck rigidity Skin: Rash present on out site of right eye, lateral right knee Neurological: No focal weakness, neck rigidity, photophobia, Brudzinski sign present laboratory and microbiology Laboratory Tests 03/04/25 02:22 Test 03/04/25 02:22 Range/Units Serum Glucose 90 74-106 mg/dL Problem List/Assessment/Plan Problem List/Assessment/Plan This is a 34-year-old male brought by EMS to ER due to altered level of consciousness. Due to clinical status, information obtained from EMR. As per EMS, patient found altered and only responding to painful stimulus like sternal rub. Patient history of UTI and took antibiotic Erythromycin. During admission patient become febrile, tachycardic and low blood pressure 87/49(MAP less than 65) and [place] coma scale 9 on admission. Levophed started and continue monitor patient. In ER, during examination - patient responds to loud voice, confused disoriented and motor response to localized pain. Jaelyn coma scale 13. NEUROLOGY Acute toxic metabolic encephalopathy secondary to substance use/sepsis Questionable meningitis Ruled out acute stroke * CT head: No evidence of acute intracranial hemorrhage, extra-axial collection, mass effect, midline shift, hernia or hydrocephalus. * Jaelyn coma scale score: 13 * Neck stiffness, Kernic sign, Brudzinski's sign negative * Plan: Monitor patient closely, neuro recheck. CARDIOVASCULAR: * Troponin< 3 * Echocardiogram to rule out cardiomyopathy PULMONARY: Sepsis due to pneumonia likely Gram-positive or Gram-negative bacteria Possible aspiration pneumonia * CT shows: Right lower lobe consolidation which could reflect pneumonia * Plan: Continue IV antibiotic, x-ray chest tomorrow to compare previous x-ray. GASTROINTESTINAL: Old granulomatous disease in the spleen. Distended gallbladder. Calcifications either anterior to or within the pancreatic tail. H/o Cholelithiasis * Lipase level 30 * Ammonia less than 10 * Plan: GI prophylaxis continue pantoprazole GENITOURINARY: Complicated cystitis TIFFANY due to vasomotor nephropathy * UA shows blood trace, leukocyte esterase 3+, WBC 63 * Urine culture * Plan: Continue IV antibiotic, IVF HEMATOLOGY: Hypocalcemia * Labs review and all near normal range * Plan: monitor labs daily, LDH LEVEL METABOLIC: Questionable hyperthyroidism * Hemoglobin A1c 5.1 * TSH 0.46 * will monitor free T4 and total T3 * CPK level 362 on admission * Plan: Thiamine, folic acid, IVF. INFECTIOUS DISEASE: Pneumonia Gram-positive or Gram-negative bacteria Syphilis Complicated cystitis * CT abdomen pelvis shows: Right lower lobe consolidation reflect pneumonia * Urine shows significant urinary tract infection * Treponema pallidum antibody reactive. * VDRL test will follow * Received ceftriaxone , vancomycin, acyclovir in ER. * Plan: Continue cefepime and vancomycin SUBSTANCE ABUSE DISORDER * UA positive for opiate, amphetamine, cannabinoid * Blood alcohol level <3 MUSCULOSKELETAL/skin Rhabdomyolysis * No abnormality detected * Rash over lateral side of right eye, left outer knee present but no skin breakdown or sacral ulcer * Plan: hydration DIET: NPO, IVF DVT prophylax: SCDs GI prophylaxis: Protonix Bowel regimen: On hold Code status: Full code LINES/DRAINS/ACCESS: Triple-lumen catheter on right groin Drips: Levophed Sykes catheter: Placed on admission 03/03/2020 DISPOSITION: ICU Critical care time spent more than 91 minutes, including patient care, chart review, and updating the family. Excluding any procedures. Case discussed with Dr. Arizmendi Plan discussed with: Other (Nurse) My Orders My Orders Orders - SEAN BULLARD Procedure Category Date Status Time Creatine Kinase LAB 03/04/25 Logged 10:14 Lipase LAB 03/04/25 Logged 10:14 Blood Alcohol LAB 03/04/25 Logged 10:14 Sodium Chloride 0.9% PHA 03/04/25 In Process 10:15 Folic Acid PHA 03/05/25 In Process 10:00 Folic Acid PHA 03/04/25 In Process 10:15 Thiamine Inj PHA 03/05/25 Logged 10:00 Thiamine Inj PHA 03/04/25 Logged 10:15 Complete Blood Count LAB 03/04/25 Logged 10:14 Comprehensive LAB 03/04/25 Logged Metabolic Panel 10:14 Cefepime 1gm/50ml PHA 03/04/25 Logged (Maxipime 1gm/50ml) 22:00 Date of Service: Mar 04, 2025 Billing Provider: JOSE ANTONIO ARIZMENDI MD Common Visit Codes: 35093-QRXCTRQR CARE 30-74 MIN, 34586-[id number] CARE-EACH +30MIN SEAN BULLARD Mar 04, 2025 10:51 JOSE ANTONIO ARIZMENDI MD Mar 06, 2025 14:07
[2025-03-04] MEDS: THIAMINE 100mg/ml INJ (200mg/2ml VIAL) IV ONE (10:58)
[2025-03-04 11:10] LABS: Hematocrit 35.5 % (41.0-53.0); Hemoglobin 12.0 g/dL (13.5-17.5); Mean Corpuscular Hemoglobin 30.3 pg (28.0-32.0); Mean Corpuscular Volume 89.5 fL (80.0-100.0); Nucleated Red Blood Cells % 0.2 %
[2025-03-04] MEDS: FOLIC ACID 1 MG in D5W 5% 50 ML INJ ONE (11:20)
[2025-03-04 11:29] LABS: Albumin 3.4 g/dL (3.2-4.8); Alkaline Phosphatase 87 U/L (46-116); Anion Gap 8 (5-15); BUN/Creatinine Ratio 13.6 (10.0-20.0); Bilirubin, Total 0.4 mg/dL (0.2-1.0); Blood Urea Nitrogen 14 mg/dL (9-23); Carbon Dioxide 25 mmol/L (20-31); Glucose 102 mg/dL (74-106); Potassium 4.4 mmol/L (3.5-5.1); Sodium 143 mmol/L (136-145); Total Protein 7.3 g/dL (5.7-8.2)
[2025-03-04 11:35] LABS: Alanine Aminotransferase 246 U/L (7-40); Calcium 7.6 mg/dL (8.7-10.4); Chloride 110 mmol/L (98-107); Creatine Kinase IFCC 362 U/L (46-171)
[2025-03-04 11:53] LABS: Lipase 28 U/L (12-53)
--- NOTE | 2025-03-04 12:33 | DVH ---
INDICATION: Rule out cardiopulmonary DX TECHNIQUE: Frontal view of the chest. COMPARISON: XY CHEST PORTABLE on DOS: 05/23/23, CHEST WITHOUT CONTRAST on DOS: 12/01/20, XY CHEST PORT ABLE on DOS: 05/23/23 FINDINGS: Cardiac silhouette is not enlarged. Pulmonary hilar prominence is noted, particularly on the right. P atchy infiltrates are noted in the right lung base. No large effusions. Consider CT for further evalu ation of the right suprahilar region. IMPRESSION: No interval improvement
[2025-03-04 13:09] LABS: RAPID PLASMA REAGIN QUANT 1:64 Titer (NONREACTIVE)
[2025-03-04 20:06] VITALS: PULSE 81; RESP 12; O2SAT 97
[2025-03-04] MEDS: VANCOMYCIN 1GM/250ML KIT 250 ML IV SCH (20:20)
[2025-03-04] MEDS ORDERED: CEFEPIME 1GM/50ML 50 ML IV SCH (22:00)
[2025-03-04] MEDS: CEFEPIME 2GM/50ML NS 50 ML IV SCH (22:26)
[2025-03-05] VITALS (8 sets, daily range): BP systolic 106–138; BP diastolic 60–85; PULSE 54–96; RESP 13–18; TEMP 97.5–98.7; O2SAT 96–99
[2025-03-05 04:59] LABS: Hematocrit 37.0 % (41.0-53.0); Hemoglobin 12.8 g/dL (13.5-17.5); Mean Corpuscular Hemoglobin 30.9 pg (28.0-32.0); Mean Corpuscular Volume 89.7 fL (80.0-100.0); Nucleated Red Blood Cells % 0.4 %
[2025-03-05 05:25] LABS: Albumin 3.3 g/dL (3.2-4.8); Alkaline Phosphatase 81 U/L (46-116); Anion Gap 11 (5-15); Carbon Dioxide 22 mmol/L (20-31); Sodium 144 mmol/L (136-145); Total Protein 7.4 g/dL (5.7-8.2)
[2025-03-05 05:26] LABS: Bilirubin, Total 0.4 mg/dL (0.2-1.0)
[2025-03-05 05:31] LABS: Alanine Aminotransferase 463 U/L (7-40); BUN/Creatinine Ratio 7.8 (10.0-20.0); Blood Urea Nitrogen < 5 mg/dL (9-23); Calcium 8.0 mg/dL (8.7-10.4); Chloride 111 mmol/L (98-107); Glucose 69 mg/dL (74-106); Potassium 3.4 mmol/L (3.5-5.1)
--- NOTE | 2025-03-05 09:06 | DVHSR ---
APPROVED REPORT EXAM: Two-dimensional and M-mode echocardiogram with Doppler and color Doppler. Blood Pressure: 102/68 mmHg INDICATION Sepsis RISK FACTORS Height: 68, Weight: 149 DIMENSIONS LVDd4.8 (3.8-5.7cm)LA (2D)3.0 (1.9-4.0cm)Aortic Root3.9 (2.0-3.7cm) LVDs3.2 (2.5-4.0cm)LA (MM) (1.9-4.0cm)Aortic Cusp Exc2.1 (1.5-2.0cm) EF (%) 60.0 (55-70%)Rt. Atrium4.6 (1.9-4.0cm)Asc. Aorta cm IVSd0.9 (0.7-1.1cm)RV (D) (1.8-2.4cm) PWd1.3 (0.7-1.1cm) Mitral Valve MitralMitral Stenosis E/A ratio0.02D MVAcm2 Aortic Valve Aortic ValveAortic Stenosis LVOT Diameter2.3 (1.8-2.4cm)Doppler AVAcm2 Pulmonic Valve V20.69m/s Other Information Technically limited study due to body habitus and patient position. Patient ALOC. Conclusion LV EF IS 70% NORMAL VALVES NO EFFUSION NORMAL RV FUNCTION
--- NOTE | 2025-03-05 09:17 | DVH ---
INDICATION: comare previous xray chest. TECHNIQUE: Frontal view of the chest. COMPARISON: XY CHEST PORTABLE on DOS: 03/04/25, XY CHEST PORTABLE on DOS: 05/23/23, CHEST WITHOUT CONT RAST on DOS: 12/01/20 Findings:Cardiac silhouette is not enlarged. Pulmonary hilar prominence is noted, particularly on the right. Patchy infiltrates are noted in the right lung base. No large effusions. Consider CT for furt her evaluation of the right suprahilar region.Impression:No interval improvement
[2025-03-05] MEDS: FOLIC ACID 1 MG in D5W 5% 50 ML INJ SCH (10:00)
--- NOTE | 2025-03-05 10:56 | DVH ---
EXAMINATION: MRI BRAIN HEAD WO CONTRAST INDICATION: ENCEPHILITIS COMPARISON: CT HEAD WITHOUT CONTRAST on DOS: 03/04/25, HEAD WITHOUT CONTRAST on DOS: 12/01/20 TECHNIQUE: Multiplanar, multisequence magnetic resonance imaging of the brain was performed without the use of i ntravenous contrast. FINDINGS: No evidence of acute or remote infarct. No intracranial hemorrhage. No mass effect. There is periventricular/deep white matter T2/FLAIR hyperintensity is nonspecific, but most commonly associated with chronic microvascular disease. The ventricles and sulci are normal in size for age. Clear basal cisterns. Flow voids in the major intracranial vessels are maintained. No abnormality of the orbits. Paranasal sinuses and mastoid air cells are clear. No abnormality of the visualized osseous structures and extracranial soft tissues. IMPRESSION: No acute infarct, intracranial hemorrhage, mass effect, or hydrocephalus.
[2025-03-05 11:13] LABS: Hepatitis B Surface Antigen Negative (Negative); Hepatitis C Antibody Negative (Negative)
[2025-03-05] MEDS: POTASSIUM CHL 20MEQ/100ML 100 ML IV ONE (12:37)
[2025-03-05] MEDS: THIAMINE 100mg/ml INJ (200mg/2ml VIAL) IV SCH (12:37)
[2025-03-05 13:43] LABS: Free T4 (Free Thyroxine) 1.13 ng/dL (0.89-1.76)
[2025-03-05] MEDS ORDERED: [UNRECOGNIZED DRUG - CODE] IM (15:41)
[2025-03-05] MEDS ORDERED: CABO1SUS IM (15:41)
--- NOTE | 2025-03-05 16:59 | DVHPNRES ---
Progress Note Date Seen: Mar 05, 2025 Resident Creating Document: SEAN BULLARD RESIDENT Medical Necessity Reason Pt with a Central, PICC or Fol: Yes (Right groin triple-lumen catheter) Subjective Review of Systems This is a 34-year-old male brought by EMS to ER due to altered level of consciousness. Due to clinical status, information obtained from EMR. As per EMS, patient found altered and only responding to painful stimulus like sternal rub. Patient history of UTI and took antibiotic Erythromycin. During admission patient become febrile, tachycardic and low blood pressure 87/49(MAP less than 65) and [place] coma scale 9. Levophed started and continue monitor patient. In ER during examination patient, patient responds to loud voice, confused disoriented and motor response to localized pain. [place] coma scale 12. USG 05/23/2025-Borderline dilated gallbladder with cholelithiasis and reportedly positive sonographic Pennington's sign concerning for developing acute cholecystitis. Intrahepatic biliary ductal dilation. Called [facility] number but unable to reach. CT head show no intracranial hemorrhage. CT abdomen and pelvis: Distended gallbladder, calcification either anterior or within the pancreatic tail, old granulomatous disease in the spleen. PCP: Unknown Allergy: Ethanol, guaifenesin PAST MEDICAL HISTORY: Anxiety Surgical History: Denies all surgeries Family History: Family hx of DM Smoker: Cigarettes, Less Than 1 Pack/Day Alcohol: Occasionally Drugs: Marijuana, Methamphetamine Lives In: Home Home medication: Unknown 03/05: Patient seen and evaluated in bedside today. Patient [place] coma scale-15. Patient able to tolerate regular diet, of Sykes catheter. ID consult for reactive VDRL and treponema pallidum antibody. Objective vital signs Vital Sign Date Time Temp Pulse Resp B/P (MAP) Pulse Ox O2 Delivery O2 Flow Rate FiO2 03/05/25 12:57 97.5 54 16 113/75 (88) 98 97.5 03/05/25 07:45 Room Air* 0 21 Total Intake and Output 03/04/25 03/04/25 03/05/25 15:00 23:00 07:00 Intake Total 1951.4500 ml 858.875 ml 562.5 ml Output Total 2150 ml 800 ml Balance -198.5500 ml 58.875 ml 562.5 ml medications Current Medications Medications Dose Ordered Sig/Jose Route Start Time Stop Time Status Last Admin Dose Admin Acetaminophen 650 mg Q6HP PRN PO 03/04/25 05:00 Ondansetron HCl 4 mg Q4HP PRN IV 03/04/25 05:00 Morphine Sulfate 2 mg Q4HPRN PRN IV 03/04/25 05:00 Enoxaparin Sodium 40 mg DAILY SC 03/04/25 10:00 03/04/25 10:06 40 MG Vancomycin HCl 0 ml @ 0 mls/hr UD IV 03/04/25 06:00 Sodium Chloride 1,000 ml @ 75 mls/hr [id number] IV 03/04/25 06:00 03/05/25 09:48 75 MLS/HR Vancomycin HCl 250 ml @ 250 mls/hr Q12H IV 03/04/25 20:00 03/05/25 09:23 250 MLS/HR Folic Acid 1 mg/ Dextrose 50.2 ml @ 200.8 mls/ hr DAILY INJ 03/05/25 10:00 Thiamine HCl 100 mg DAILY IV 03/05/25 10:00 03/05/25 12:37 100 MG Cefepime HCl 50 ml @ 12.5 mls/hr Q8HR IV 03/04/25 22:00 03/05/25 14:38 12.5 MLS/HR Examination Constitutional: Patient currently on bed, AO x3 Eyes: No Conjunctivae inflammation, negative for photophobia ENT: No Ear discharge, Nose discharge Respiratory: No Shortness of breath with excertion, Wheezing, Hemoptysis, Cardiovascular: S1-S2 audible and heart rate regular, no murmurs Gastrointestinal: Abdomen soft nontender and bowel sounds present Genitourinary: No discharge, bleeding or swelling noted Musculoskeletal: No local joint rigidity, neck rigidity Skin: Rash present on out site of right eye, lateral right knee Neurological: No focal weakness, neck rigidity, photophobia, Brudzinski sign present laboratory and microbiology Laboratory Tests 03/05/25 04:28 Test 03/05/25 04:28 Range/Units Serum Glucose 69 L 74-106 mg/dL Microbiology Date/Time Source Procedure Growth Status 03/04/25 06:10 Nose MRSA Screen - Final Complete 03/04/25 02:22 Blood Blood Culture - Preliminary NO GROWTH AFTER 24 HOURS OF INCUBATION. Resulted Problem List/Assessment/Plan Problem List/Assessment/Plan This is a 34-year-old male brought by EMS to ER due to altered level of consciousness. Due to clinical status, information obtained from EMR. As per EMS, patient found altered and only responding to painful stimulus like sternal rub. Patient history of UTI and took antibiotic Erythromycin. During admission patient become febrile, tachycardic and low blood pressure 87/49(MAP less than 65) and [place] coma scale 9 on admission. Levophed started and continue monitor patient. In ER, during examination - patient responds to loud voice, confused disoriented and motor response to localized pain. Jaelyn coma scale 15 today. As per patient, he is positive for HIV and syphilis but unknown treatment. Follow-up with ID specialist Dr. Schmitz. NEUROLOGY Acute toxic metabolic encephalopathy secondary to substance use/sepsis Questionable meningitis Ruled out acute stroke * CT head: No evidence of acute intracranial hemorrhage, extra-axial collection, mass effect, midline shift, hernia or hydrocephalus. * Jaelyn coma scale score: 15 * Neck stiffness, Kernic sign, Brudzinski's sign negative * Plan: Monitor patient closely, neuro recheck. CARDIOVASCULAR: * Troponin< 3 * Echocardiogram on 03/04/2025 showed EF 70% with no valvular abnormality PULMONARY: Sepsis due to pneumonia likely Gram-positive or Gram-negative bacteria Possible aspiration pneumonia * CT shows: Right lower lobe consolidation which could reflect pneumonia * Plan: Continue IV antibiotic, breathing treatment GASTROINTESTINAL: Old granulomatous disease in the spleen. Distended gallbladder. Calcifications either anterior to or within the pancreatic tail. H/o Cholelithiasis Transaminitis * Lipase level 30 * Ammonia< 10 * Plan: GI prophylaxis continue pantoprazole * Monitor liver function GENITOURINARY: Complicated cystitis TIFFANY due to vasomotor nephropathy Hypokalemia * UA shows blood trace, leukocyte esterase 3+, WBC 63 * Urine culture * Plan: Continue IV antibiotic, IVF HEMATOLOGY: Hypocalcemia * Labs review and all near normal range * Plan: monitor labs . METABOLIC: Questionable hyperthyroidism * Hemoglobin A1c 5.1 * TSH 0.46 * will monitor free T4 and total T3 * CPK level 362 on admission * Plan: Thiamine, folic acid, IVF. INFECTIOUS DISEASE: Pneumonia Gram-positive or Gram-negative bacteria Syphilis Complicated cystitis * CT abdomen pelvis shows: Right lower lobe consolidation reflect pneumonia * Urine shows significant urinary tract infection * Treponema pallidum antibody- reactive. * VDRL test -reactive * LDH 274 * Received ceftriaxone , vancomycin, acyclovir in ER. * Plan: Discontinue cefepime and vancomycin and start Unasyn on 03/05/2025 * ID consult. STD panel and hepatitis panel we will follow. SUBSTANCE ABUSE DISORDER * UA positive for opiate, amphetamine, cannabinoid * Blood alcohol level <3 MUSCULOSKELETAL/skin Rhabdomyolysis * No abnormality detected * Rash over lateral side of right eye, left outer knee present but no skin breakdown or sacral ulcer * Plan: hydration DIET: Mechanical soft to regular diet DVT prophylax: SCDs GI prophylaxis: Protonix Bowel regimen: None Code status: Full code, more than 19 minute spent with patient and discussed advanced care. LINES/DRAINS/ACCESS: Triple-lumen catheter on right groin Drips: s/p Levophed Sykes catheter: Off on 03/05/2025 DISPOSITION: Telemetry advance care planning- full code- time spent 18 mins Case discussed with Dr. Arizmendi, patient and nurse. Plan discussed with: Patient, Other (Nurse) My Orders My Orders Orders - SEAN BULLARD Procedure Category Date Status Time Communication Order ORDERS 03/04/25 Transmitted 17:12 Chest Portable XY 03/05/25 Resulted 04:00 * Dietary Consult CONS 03/04/25 Transmitted 18:14 * Infectious [place]- DrVamshi CONS 03/05/25 Transmitted K Nadir 16:41 Dietary Evaluation Review Comments: Nutrition Recommendation 1) Continue current plan of care 2) Monitor PO intake, lab values, weight trend, and I/O Expected Outcomes/Goals: Lab values to improve Fu 3-5 days Date of Service: Mar 05, 2025 Billing Provider: JOSE ANTONIO ARIZMENDI MD Common Visit Codes: 62239-[id number] INP/OBS CARE(HIGH) Secondary Visit Codes: [id number] CARE PLAN 30 MINUTES SEAN BULLARD Mar 05, 2025 16:59 JOSE ANTONIO ARIZMENDI MD Mar 06, 2025 14:09
[2025-03-05] MEDS ORDERED: ALBUTEROL SULF 2.5 MG/0.5ML(0.5%) NEB SOLN NEB PRN (17:15)
[2025-03-05] MEDS: AMPICILLIN & SULBACTAM SODIUM 3 GM in SODIUM CHL 0.9% 100 ML IV SCH (18:15)
[2025-03-05] MEDS: ACETAMINOPHEN 325 MG TAB PO PRN (23:24)
[2025-03-06 05:00] VITALS: BP 102/41; PULSE 83; RESP 14; O2SAT 100
[2025-03-06 06:07] LABS: Chlamydia Trachomatis, NAA Positive (Negative); Neisseria gonorrhoeae, NAA Positive (Negative)
[2025-03-06 07:07] LABS: HIV 1 Antibody Reactive (Non Reactive); HIV 2 Antibody Non Reactive (Non Reactive)
[2025-03-06 07:35] LABS: Hematocrit 33.1 % (41.0-53.0); Hemoglobin 11.4 g/dL (13.5-17.5); Mean Corpuscular Hemoglobin 30.2 pg (28.0-32.0); Mean Corpuscular Volume 87.5 fL (80.0-100.0); Nucleated Red Blood Cells % 0.1 %
[2025-03-06 07:39] LABS: Alkaline Phosphatase 87 U/L (46-116); Anion Gap 9 (5-15); BUN/Creatinine Ratio 16.5 (10.0-20.0); Blood Urea Nitrogen 18 mg/dL (9-23); Carbon Dioxide 27 mmol/L (20-31); Potassium 3.7 mmol/L (3.5-5.1); Sodium 145 mmol/L (136-145); Total Protein 6.6 g/dL (5.7-8.2)
[2025-03-06 07:46] LABS: Alanine Aminotransferase 247 U/L (7-40); Albumin 3.0 g/dL (3.2-4.8); Bilirubin, Total 0.3 mg/dL (0.2-1.0); Calcium 7.8 mg/dL (8.7-10.4); Chloride 109 mmol/L (98-107); Glucose 149 mg/dL (74-106)
--- NOTE | 2025-03-06 07:55 | DVHPNRES ---
Progress Note Date Seen: Mar 06, 2025 Resident Creating Document: SEAN BULLARD RESIDENT Medical Necessity Reason Pt with a Central, PICC or Fol: Yes (Right groin triple-lumen catheter) Subjective Review of Systems his is a 34-year-old male brought by EMS to ER due to altered level of consciousness. Due to clinical status, information obtained from EMR. As per EMS, patient found altered and only responding to painful stimulus like sternal rub. Patient history of UTI and took antibiotic Erythromycin. During admission patient become febrile, tachycardic and low blood pressure 87/49(MAP less than 65) and Jaelyn coma scale 9. Levophed started and continue monitor patient. In ER during examination patient, patient responds to loud voice, confused disoriented and motor response to localized pain. Linden coma scale 12. USG 05/23/2025-Borderline dilated gallbladder with cholelithiasis and reportedly positive sonographic Pennington's sign concerning for developing acute cholecystitis. Intrahepatic biliary ductal dilation. Called [facility] number but unable to reach. CT head show no intracranial hemorrhage. CT abdomen and pelvis: Distended gallbladder, calcification either anterior or within the pancreatic tail, old granulomatous disease in the spleen. PCP: Unknown Allergy: Ethanol, guaifenesin PAST MEDICAL HISTORY: Anxiety, HIV,Syphilis unknown treatment , non compliance with medication. Surgical History: Denies all surgeries Family History: Family hx of DM Smoker: Cigarettes, Less Than 1 Pack/Day, smoke hashis, amphetamine,weed daily Alcohol: Occasionally Drugs: Marijuana, Methamphetamine Lives In: Home with aunt. PCP: DR. Schmitz [place] medication: Unknown 03/05: Patient seen and evaluated in bedside today. Patient Linden coma scale-15. Patient able to tolerate regular diet, of Sykes catheter. ID consult for reactive VDRL and treponema pallidum antibody. 03/06: Patient seen and evaluated in bedside. Patient in AO x3. Pending ID consult. Patient denies any fever, cough, chest pain, abdominal pain. Having good appetite. Right groin catheter clean and dry. Objective vital signs Vital Sign Date Time Temp Pulse Resp B/P (MAP) Pulse Ox O2 Delivery O2 Flow Rate FiO2 03/06/25 05:00 83 14 102/41 (61) 100 03/05/25 23:33 98.7 98.7 03/05/25 22:50 Room Air 0.0 03/05/25 22:50 21 Total Intake and Output 03/05/25 03/05/25 03/06/25 15:00 23:00 07:00 Intake Total 350 ml 358 ml Balance 350 ml 358 ml medications Current Medications Medications Dose Ordered Sig/Jose Route Start Time Stop Time Status Last Admin Dose Admin Acetaminophen 650 mg Q6HP PRN PO 03/04/25 05:00 03/05/25 23:24 650 MG Ondansetron HCl 4 mg Q4HP PRN IV 03/04/25 05:00 Morphine Sulfate 2 mg Q4HPRN PRN IV 03/04/25 05:00 Enoxaparin Sodium 40 mg DAILY SC 03/04/25 10:00 03/04/25 10:06 40 MG Sodium Chloride 1,000 ml @ 75 mls/hr [id number] IV 03/04/25 06:00 03/05/25 09:48 75 MLS/HR Folic Acid 1 mg/ Dextrose 50.2 ml @ 200.8 mls/ hr DAILY INJ 03/05/25 10:00 Thiamine HCl 100 mg DAILY IV 03/05/25 10:00 03/05/25 12:37 100 MG Ampicillin Sodium/ Sulbactam Sodium 3 gm/Sodium Chloride 100 ml @ 100 mls/hr Q6H IV 03/05/25 17:15 03/06/25 05:07 100 MLS/HR Albuterol 2.5 mg Q8HPRN PRN NEB 03/05/25 17:15 Examination Constitutional: Patient currently on bed, AO x3 Eyes: No Conjunctivae inflammation, negative for photophobia ENT: No Ear discharge, Nose discharge Respiratory: No Shortness of breath with excertion, Wheezing, Hemoptysis, Cardiovascular: S1-S2 audible and heart rate regular, no murmurs Gastrointestinal: Abdomen soft nontender and bowel sounds present Genitourinary: No discharge, bleeding or swelling noted Musculoskeletal: No local joint rigidity, neck rigidity Skin: Rash present on out site of right eye, lateral right knee Neurological: No focal weakness, neck rigidity, photophobia, Brudzinski sign present laboratory and microbiology Laboratory Tests 03/06/25 05:45 Test 03/06/25 05:45 Range/Units Serum Glucose 149 H 74-106 mg/dL Microbiology Date/Time Source Procedure Growth Status 03/04/25 06:10 Nose MRSA Screen - Final Complete 03/04/25 02:22 Blood Blood Culture - Preliminary NO GROWTH AFTER 48 HOURS OF INCUBATION. Resulted Problem List/Assessment/Plan Problem List/Assessment/Plan This is a 34-year-old male PMHx Anxiety, HIV,Syphilis unknown treatment , non compliance with medication. brought by EMS to ER due to altered level of consciousness. Due to clinical status, information obtained from EMR. As per EMS, patient found altered and only responding to painful stimulus like sternal rub. Patient history of UTI and took antibiotic Erythromycin. During admission patient become febrile, tachycardic and low blood pressure 87/49(MAP less than 65) and Jaelyn coma scale 9 on admission. Levophed started and continue monitor patient. In ER, during examination - patient responds to loud voice, confused disoriented and motor response to localized pain. Follow-up with ID specialist Dr. Schmitz. NEUROLOGY Acute toxic metabolic encephalopathy secondary to substance use/sepsis Questionable meningitis Ruled out acute stroke * CT head: No evidence of acute intracranial hemorrhage, extra-axial collection, mass effect, midline shift, hernia or hydrocephalus. * MRI brain: No acute intracranial lesion. * Linden coma scale score: 15 * Neck stiffness, Kernic sign, Brudzinski's sign negative * Plan: Monitor patient closely, neuro recheck. CARDIOVASCULAR: * Troponin< 3 * Echocardiogram on 03/04/2025 showed EF 70% with no valvular abnormality PULMONARY: Sepsis due to pneumonia likely Gram-positive or Gram-negative bacteria Possible aspiration pneumonia * CT shows: Right lower lobe consolidation which could reflect pneumonia * Plan: Continue IV antibiotic, breathing treatment GASTROINTESTINAL: Old granulomatous disease in the spleen. Distended gallbladder. Calcifications either anterior to or within the pancreatic tail. H/o Cholelithiasis Transaminitis * Lipase level 30 * Ammonia< 10 * Plan: GI prophylaxis continue pantoprazole * Monitor liver function GENITOURINARY: Complicated cystitis TIFFANY due to vasomotor nephropathy Hypokalemia * UA shows blood trace, leukocyte esterase 3+, WBC 63 * Urine culture * Plan: Continue IV antibiotic, IVF HEMATOLOGY: Hypocalcemia * Labs review and all near normal range * Plan: monitor labs . METABOLIC: Questionable hyperthyroidism * Hemoglobin A1c 5.1 * TSH 0.46, total T3 1.13, free T4 0.99 * CPK level 362 on admission * Plan: Thiamine, folic acid, IVF. INFECTIOUS DISEASE: Pneumonia Gram-positive or Gram-negative bacteria Syphilis HIV Gonorrhea Trachomatis Complicated cystitis * CT abdomen pelvis shows: Right lower lobe consolidation reflect pneumonia * Urine shows significant urinary tract infection * MRSA nasal and blood culture x2(03/04/2025) negative * Treponema pallidum antibody, VDRL test -reactive * Nature gonorrhea and Trichomonas-positive * HIV 1 and 2 antibody-HIV 1 positive * Hepatitis-B and ffhjrhysr-H-dggfjtrb * LDH 274 * Received ceftriaxone , vancomycin, acyclovir in ER. * Plan: Discontinue cefepime and vancomycin and start Unasyn on 03/05/2025 * ID consult pending SUBSTANCE ABUSE DISORDER * UA positive for opiate, amphetamine, cannabinoid * Blood alcohol level <3 MUSCULOSKELETAL/skin Rhabdomyolysis * No abnormality detected * Rash over lateral side of right eye, left outer knee present but no skin breakdown or sacral ulcer * Plan: hydration NONCOMPLIANCE WITH MEDICAL MANAGEMENT Discussed the adverse effect of noncompliance, counseling done. Patient verbally agree and understanding vertebral discussed. DIET: Regular DVT prophylax: SCDs , patient ambulating GI prophylaxis: Protonix Bowel regimen: None Code status: Full code, more than 13 minute spent with patient and discussed advanced care. LINES/DRAINS/ACCESS: Triple-lumen catheter on right groin Drips: None Sykes catheter: Off on 03/05/2025 DISPOSITION: Med surge More than 27 minutes spent with patient. Called [facility]ok[facility]cell number on Chart but unable to reach. Case discussed with Dr. Lunsford, patient and nurse. Plan discussed with: Patient, Other (Nurse) My Orders My Orders Orders - SEAN BULLARD RESIDENT Procedure Category Date Status Time * Infectious Hannah- CONS 03/05/25 Transmitted [facility] Schmitz 16:41 Hepatitis B Surface LAB 03/06/25 In Process Antigen 04:00 Hepatitis C Antibody LAB 03/06/25 In Process 04:00 Hepatitis B Surface LAB 03/06/25 In Process Antibody 04:00 Ampicillin & PHA 03/05/25 In Process Sulbactam Sodium 17:15 Albuterol Medneb PHA 03/05/25 In Process (Ventolin Medneb) 17:15 Dietary Evaluation Review Comments: Nutrition Recommendation 1) Continue current plan of care 2) Monitor PO intake, lab values, weight trend, and I/O Expected Outcomes/Goals: Lab values to improve Fu 3-5 days SEAN BULLARD RESIDENT Mar 06, 2025 07:55
[2025-03-06 09:00] VITALS: BP 100/53; PULSE 91; RESP 17; TEMP 98.4; O2SAT 96
[2025-03-06 09:30] VITALS: O2SAT 99
--- NOTE | 2025-03-06 11:57 | DVHCONRES ---
Date Seen: Mar 06, 2025 Resident Creating Document: STUART HUDSON RESIDENT Referring Physician Dr. Barba Reason for Consultation HIV and syphilis positive History of Present Illness This is a 34-year-old male with past medical history of anxiety disorder, HIV positive, possible syphilis infection as well. Patient presented to the ED via EMS due to altered level of consciousness. Per EMR at that time, patient was lastly seen completely normal on 03/03/2025 at 4:00 p.m.. Patient was found before brought to the ED unresponsive and altered only responding to sternal rub stimulus. Per EMR, patient was on erythromycin for a urinary tract infection or testicular infection. Patient was found on the scene febrile, tachycardic with hypertension. Today, patient is alert and oriented in person, place and time but is sleepy and does not want to cooperate much answering questions. Per patient, he was diagnosed with HIV three years back. He states that he was on Biktarvy but does not remember for how long and stated that has been off the medications for years (unspecified/does not know). When asked about sexual life status, patient does not want to respond any questions and got angry. Patient states that he knew that he had syphilis before and states that he got six shots of penicillin. Patient does not remember for how long he was diagnosed with syphilis and does not remember when he receive the medication. CT scan of the abdomen showed right lower lobe consolidation likely due to aspiration. MRI and CT scan of the head both were coming back unremarkable. Patient was recently started on IV vancomycin and cefepime and posteriorly switched to IV Unasyn. Patient is currently on multivitamins and NS at 75 cc/hour. Vitals are grossly unremarkable except for blood pressure which is in the lower side but not requesting any hemodynamic support. HIV one and two came back positive. Treponemal antibodies came back positive as well. RPR came back reactive and RPR titers came elevated at 1:64. Patient did not wanted to discuss any other question/details about HIV/syphilis. Past Medical History Anxiety disorder, HIV positive, possible syphilis infection Past Surgical History Denies Family History: Diabetes mellitus G8 MOTHER G8 FATHER Family History Family has diabetes Social History UDS came back positive for methamphetamine, cannabinoids and opioids. Patient also smokes cigarettes less than one pack a day. Allergies: Coded Allergies: Ethanol (Verified Allergy, Unknown, 08/12/22) Guaifenesin (Verified Allergy, Unknown, 08/12/22) Home Meds Active Scripts Docusate Sodium (Colace) 100 Mg Cap, 1 CAP PO BID, #30 CAP Prov:CARROLL CALDERA PAC 11/13/22 Lactulose (Lactulose) 10 Gm/15 Ml Yuni, 10 GM PO BIDP PRN, #150 ML Prov:CARROLL CALDERA PAC 11/13/22 Reported Medications Penicillin G Benzathine (Bicillin l-A) 2,400,000 Unit/4 Ml Inj, [id number] UNIT IM QWEEKLY, INJ 03/05/25 Cabotegravir & Rilpivirine (Cabenuva 600 & 900 mg/3Ml) 1 Juliette Juliette, 1 JULIETTE IM, ML 03/05/25 Current Medications Current Medications Medications (Trade) Dose Ordered Sig/Jose Route PRN Reason Start Time Stop Time Status Last Admin Ampicillin Sodium/ Sulbactam Sodium 3 gm/Sodium Chloride 100 ml @ 100 mls/hr Q6H IV 03/05/25 17:15 03/06/25 05:07 Albuterol (Ventolin Medneb) 2.5 mg Q8HPRN PRN NEB SHORTNESS OF BREATH 03/05/25 17:15 Review of Systems ROS Constitutional: Denies weight loss, fever and chills. HEENT: Denies changes in vision and hearing. Respiratory: Denies shortness of breath and cough Cardiovascular: Denies chest discomfort or palpitations GI: Denies abdominal pain, nausea, vomiting and diarrhea. : Denies dysuria and urinary frequency. Musculoskeletal: Denies myalgias and joint pain Skin: Denies rash and pruritus. Neurological: Denies dizziness, headache, vision or hearing problems Vital Signs Vital Signs Date Time Temp Pulse Resp B/P (MAP) Pulse Ox O2 Delivery O2 Flow Rate FiO2 03/06/25 09:00 98.4 91 17 100/53 (69) 96 98.4 03/05/25 22:50 Room Air 0.0 03/05/25 22:50 21 Physical Exam Physical Examination General: Patient alert and oriented in person, place and time. Patient follows command but does not want to answer specific questions. HEENT: Normocephalic, atraumatic, moist mucous membranes Respiratory/pulmonary: There are mild crackles on right lower base otherwise clear lungs bilaterally. Cardiovascular: Normal heart sounds S1 and S2 with no associated murmurs Abdomen: Abdomen nondistended, there is no pain to palpation in any of the abdominal quadrants, no palpable masses. Extremities: There is no peripheral edema present at the lower extremities. Skin: No rashes or pruritus, there is no sacral edema present at this time. Neurological: Intact cranial nerves with no focal neurologic deficits Labs/Diagnostic Data Labs Test 03/06/25 05:45 03/05/25 12:53 03/05/25 04:28 03/04/25 15:12 Range/Units White Blood Count 6.1 # 4.4-10.8 10^3/uL Red Blood Count 3.79 L 4.5-5.90 10^6/uL Hemoglobin 11.4 L 13.5-17.5 g/dL Hematocrit 33.1 #L 41.0-53.0 % Mean Corpuscular Volume 87.5 80.0-100.0 fL Mean Corpuscular Hemoglobin 30.2 28.0-32.0 pg Mean Corpuscular Hemoglobin Concent 34.5 32.0-36.0 g/dL Red Cell Distribution Width 14.0 11.8-14.3 % Platelet Count 211 140-450 10^3/uL Mean Platelet Volume 6.5 L 6.9-10.8 fL Neutrophils (%) (Auto) 63.0 37.0-80.0 % Lymphocytes (%) (Auto) 27.1 10.0-50.0 % Monocytes (%) (Auto) 8.8 0.0-12.0 % Eosinophils (%) (Auto) 0.9 0.0-7.0 % Basophils (%) (Auto) 0.2 0.0-2.0 % Neutrophils # (Auto) 3.8 1.6-8.6 10 ^3/uL Lymphocytes # (Auto) 1.6 0.4-5.4 10 ^3/uL Monocytes # (Auto) 0.5 0-1.3 10 ^3/uL Eosinophils # (Auto) 0.1 0-0.8 10 ^3/uL Basophils # (Auto) 0 0-0.2 10 ^3/uL Nucleated Red Blood Cells 0.1 % Sodium Level 145 136-145 mmol/L Potassium Level 3.7 3.5-5.1 mmol/L Chloride Level 109 H 98-107 mmol/L Carbon Dioxide Level 27 20-31 mmol/L Anion Gap 9 5-15 Blood Urea Nitrogen 18 # 9-23 mg/dL Creatinine 1.09 0.700-1.30 mg/dL Glomerular Filtration Rate Calc 90 >90 mL/min BUN/Creatinine Ratio 16.5 10.0-20.0 Serum Glucose 149 H 74-106 mg/dL Calcium Level 7.8 L 8.7-10.4 mg/dL Total Bilirubin 0.3 0.2-1.0 mg/dL Aspartate Amino Transferase (AST) 67 H 13-40 U/L Alanine Aminotransferase (ALT) 247 H 7-40 U/L Alkaline Phosphatase 87 46-116 U/L Total Protein 6.6 5.7-8.2 g/dL Albumin 3.0 L 3.2-4.8 g/dL Free Thyroxine (T4) Calculated 1.13 0.89-1.76 ng/dL Total Triiodothyronine (TT3) 0.99 0.60-1.81 ng/mL Lactate Dehydrogenase 274 H 120-246 U/L Chlamydia trachomatis (ANGÉLICA) Positive H Negative Neisseria gonorrhoeae (ANGÉLICA) Positive H Negative Test 03/04/25 13:23 03/04/25 10:55 03/04/25 08:04 03/04/25 07:13 Range/Units HIV-1 Antibody Confirmation Reactive Non Reactive HIV-2 Antibody Confirmation Non reactive Non Reactive HIV (1&2) Ag and Ab, 4th Generation Preliminary reactive Non Reactive HIV (1&2) Antibody Interpretation Hiv-1 positive H . Creatine Kinase 362 H 46-171 U/L Lipase 28 12-53 U/L Plasma/Serum Blood Alcohol < 3.0 <10 mg/dL POC Glucose 122 H 70-106 mg/dl Hepatitis A IgM Antibody Negative Hepatitis B Core IgM Antibody Negative Negative Test 03/04/25 06:10 03/04/25 05:34 03/04/25 04:25 03/04/25 02:22 Range/Units Influenza Type A Antigen Negative Negative Influenza Type B Antigen Negative Negative SARS-CoV-2 Antigen (Rapid) Negative NEGATIVE Ammonia < 10 L 11-32 umol/L Rapid Plasma Reagin Titer 1:64 A NONREACTIVE Titer Rapid Plasma Reagin Reactive A NONREACTIVE Treponema pallidum Antibody Reactive *A Negative HIV (1&2) Antibody Deferred Negative Lactic Acid Level 0.6 0.4-2.0 mmol/L Prothrombin Time 11.1 9.3-11.8 sec Prothrombin Time INR 1.05 0.9-1.15 Activated Partial Thromboplast Time 29.7 24.5-34.5 SEC Hemoglobin A1c 5.0 <5.7 % A1C Phosphorus Level 3.1 2.4-5.1 mg/dL Magnesium Level 2.2 1.6-2.6 mg/dL Triglycerides Level 80 < 150 mg/dL Cholesterol Level 125 < 200 mg/dL LDL Cholesterol 82 < 100 mg/dL HDL Cholesterol 38 L 40-59 mg/dL Vitamin B12 Level 493 211-911 pg/mL Vitamin D 25-Hydroxy 51.0 30.0-100 ng/mL Thyroid Stimulating Hormone (TSH) 0.46 L 0.55-4.78 uIU/mL Test 03/04/25 02:17 Range/Units Urine Color Yellow Yellow Urine Clarity Clear Clear Urine pH 6.0 5.0-9.0 Urine Specific [place] 1.024 1.001-1.035 Urine Protein Trace H Negative Urine Ketones Negative Negative Urine Blood Trace H Negative /uL Urine Nitrite Negative Negative Urine Bilirubin Negative Negative Urine Urobilinogen Normal Negative mg/dL Urine Leukocyte Esterase 3+ Negative /uL Urine RBC 3 0 - 3 /hpf Urine Microscopic WBC 63 H 0-3 /HPF Urine Squamous Epithelial Cells Few <5 /hpf Urine Bacteria None seen None Seen /hpf Urine Mucus Few None Seen Urine Glucose Normal Normal mg/dL Urine Opiates Screen Pos NEGATIVE Urine Fentanyl Screen Neg NEGATIVE Urine Barbiturates Screen Neg NEGATIVE Urine Phencyclidine Screen Neg NEGATIVE Urine Amphetamines Screen Pos NEGATIVE Urine Benzodiazepines Screen Neg NEGATIVE Urine Cocaine Screen Neg NEGATIVE Urine Cannabinoids Screen Pos NEGATIVE Microbiology Date/Time Source Procedure Growth Status 03/04/25 06:10 Nose MRSA Screen - Final Complete 03/04/25 02:22 Blood Blood Culture - Preliminary NO GROWTH AFTER 48 HOURS OF INCUBATION. Resulted 03/04/25 02:17 Voided Urine Urine Culture - Final Complete Assessment Assessment/plan Acute hypoxic respiratory failure likely due to aspiration pneumonia Possible acute bacterial pneumonia HIV positive Possible syphilis infection Positive Neisseria gonorrhea and chlamydia trachomatis Plan -Continue Unasyn IV -Order urine culture, waiting for blood culture and sputum culture -Ordered renal US -Give IM ceftriaxone single dose for N. Gonorrhea -Order CD4 count and Viral load. Last CD4 count was in 224 and was 221. CD4% was 10.5 (2023). -Doxycycline 100mg PO BID for chlamydia -Need to confirm with primary department if he was appropriately treated back in september. back in september 2024 RPR titers were 1:256, now is 1:64which show a 4 fold drop, it can be considered treated at this time. -No need of phrophylaxys at this time. -Monitor BP closely. Goals of care discussed with the patient at bedside Plan discussed with Dr. Schmitz Plan discussed with: Patient STUART HUDSON RESIDENT Mar 06, 2025 11:57
[2025-03-06] MEDS: cefTRIAXone SOD 500 MG VL IM ONE (14:09)
--- NOTE | 2025-03-06 17:46 | DVHDSRES ---
Discharge Summary Date of Admission Resident Creating Document: SEAN BULLARD RESIDENT Mar 04, 2025 at 04:57 Date of Discharge: Mar 06, 2025 Labs/Diagnostic Data: Laboratory Results Test 03/06/25 05:45 03/05/25 12:53 03/05/25 04:28 03/04/25 15:12 White Blood Count 6.1 10^3/uL (4.4-10.8) Red Blood Count 3.79 10^6/uL (4.5-5.90) Hemoglobin 11.4 g/dL (13.5-17.5) Hematocrit 33.1 % (41.0-53.0) Mean Corpuscular Volume 87.5 fL (80.0-100.0) Mean Corpuscular Hemoglobin 30.2 pg (28.0-32.0) Mean Corpuscular Hemoglobin Concent 34.5 g/dL (32.0-36.0) Red Cell Distribution Width 14.0 % (11.8-14.3) Platelet Count 211 10^3/uL (140-450) Mean Platelet Volume 6.5 fL (6.9-10.8) Neutrophils (%) (Auto) 63.0 % (37.0-80.0) Lymphocytes (%) (Auto) 27.1 % (10.0-50.0) Monocytes (%) (Auto) 8.8 % (0.0-12.0) Eosinophils (%) (Auto) 0.9 % (0.0-7.0) Basophils (%) (Auto) 0.2 % (0.0-2.0) Neutrophils # (Auto) 3.8 10 ^3/uL (1.6-8.6) Lymphocytes # (Auto) 1.6 10 ^3/uL (0.4-5.4) Monocytes # (Auto) 0.5 10 ^3/uL (0-1.3) Eosinophils # (Auto) 0.1 10 ^3/uL (0-0.8) Basophils # (Auto) 0 10 ^3/uL (0-0.2) Nucleated Red Blood Cells 0.1 % Sodium Level 145 mmol/L (136-145) Potassium Level 3.7 mmol/L (3.5-5.1) Chloride Level 109 mmol/L (98-107) Carbon Dioxide Level 27 mmol/L (20-31) Anion Gap 9 (5-15) Blood Urea Nitrogen 18 mg/dL (9-23) Creatinine 1.09 mg/dL (0.700-1.30) Glomerular Filtration Rate Calc 90 mL/min (>90) BUN/Creatinine Ratio 16.5 (10.0-20.0) Serum Glucose 149 mg/dL (74-106) Calcium Level 7.8 mg/dL (8.7-10.4) Total Bilirubin 0.3 mg/dL (0.2-1.0) Aspartate Amino Transferase (AST) 67 U/L (13-40) Alanine Aminotransferase (ALT) 247 U/L (7-40) Alkaline Phosphatase 87 U/L (46-116) Total Protein 6.6 g/dL (5.7-8.2) Albumin 3.0 g/dL (3.2-4.8) Free Thyroxine (T4) Calculated 1.13 ng/dL (0.89-1.76) Total Triiodothyronine (TT3) 0.99 ng/mL (0.60-1.81) Lactate Dehydrogenase 274 U/L (120-246) Chlamydia trachomatis (ANGÉLICA) Positive (Negative) Neisseria gonorrhoeae (ANGÉLICA) Positive (Negative) Test 03/04/25 13:23 03/04/25 10:55 03/04/25 08:04 03/04/25 07:13 HIV-1 Antibody Confirmation Reactive (Non Reactive) HIV-2 Antibody Confirmation Non reactive (Non Reactive) HIV (1&2) Ag and Ab, 4th Generation Preliminary reactive (Non HIV (1&2) Antibody Interpretation Hiv-1 positive (.) Creatine Kinase 362 U/L (46-171) Lipase 28 U/L (12-53) Plasma/Serum Blood Alcohol < 3.0 mg/dL (<10) POC Glucose 122 mg/dl (70-106) Hepatitis A IgM Antibody Negative Hepatitis B Core IgM Antibody Negative (Negative) Test 03/04/25 06:10 03/04/25 05:34 03/04/25 04:25 03/04/25 02:22 Influenza Type A Antigen Negative (Negative) Influenza Type B Antigen Negative (Negative) SARS-CoV-2 Antigen (Rapid) Negative (NEGATIVE) Ammonia < 10 umol/L (11-32) Rapid Plasma Reagin Titer 1:64 Titer (NONREACTIVE) Rapid Plasma Reagin Reactive (NONREACTIVE) Treponema pallidum Antibody Reactive (Negative) HIV (1&2) Antibody Deferred (Negative) Lactic Acid Level 0.6 mmol/L (0.4-2.0) Prothrombin Time 11.1 sec (9.3-11.8) Prothrombin Time INR 1.05 (0.9-1.15) Activated Partial Thromboplast Time 29.7 SEC (24.5-34.5) Hemoglobin A1c 5.0 % A1C (<5.7) Phosphorus Level 3.1 mg/dL (2.4-5.1) Magnesium Level 2.2 mg/dL (1.6-2.6) Triglycerides Level 80 mg/dL (< 150) Cholesterol Level 125 mg/dL (< 200) LDL Cholesterol 82 mg/dL (< 100) HDL Cholesterol 38 mg/dL (40-59) Vitamin B12 Level 493 pg/mL (211-911) Vitamin D 25-Hydroxy 51.0 ng/mL (30.0-100) Thyroid Stimulating Hormone (TSH) 0.46 uIU/mL (0.55-4.78) Test 03/04/25 02:17 Urine Color Yellow (Yellow) Urine Clarity Clear (Clear) Urine pH 6.0 (5.0-9.0) Urine Specific [place] 1.024 (1.001-1.035) Urine Protein Trace (Negative) Urine Ketones Negative (Negative) Urine Blood Trace /uL (Negative) Urine Nitrite Negative (Negative) Urine Bilirubin Negative (Negative) Urine Urobilinogen Normal mg/dL (Negative) Urine Leukocyte Esterase 3+ /uL (Negative) Urine RBC 3 /hpf (0 - 3) Urine Microscopic WBC 63 /HPF (0-3) Urine Squamous Epithelial Cells Few /hpf (<5) Urine Bacteria None seen /hpf (None Seen) Urine Mucus Few (None Seen) Urine Glucose Normal mg/dL (Normal) Urine Opiates Screen Pos (NEGATIVE) Urine Fentanyl Screen Neg (NEGATIVE) Urine Barbiturates Screen Neg (NEGATIVE) Urine Phencyclidine Screen Neg (NEGATIVE) Urine Amphetamines Screen Pos (NEGATIVE) Urine Benzodiazepines Screen Neg (NEGATIVE) Urine Cocaine Screen Neg (NEGATIVE) Urine Cannabinoids Screen Pos (NEGATIVE) Other Laboratory Tests 03/06/25 05:45 Brief Hx & Hospital Course: This is a 34-year-old male brought by EMS to ER due to altered level of consciousness. Due to clinical status, information obtained from EMR. As per EMS, patient found altered and only responding to painful stimulus like sternal rub. Patient history of UTI and took antibiotic Erythromycin. During admission patient become febrile, tachycardic and low blood pressure 87/49(MAP less than 65) and [place] coma scale 9. Levophed started and continue monitor patient. In ER during examination patient, patient responds to loud voice, confused disoriented and motor response to localized pain. [place] coma scale 12. USG 05/23/2025-Borderline dilated gallbladder with cholelithiasis and reportedly positive sonographic Penning[place]'s sign concerning for developing acute cholecystitis. Intrahepatic biliary ductal dilation. Called [facility] number but unable to reach. CT head show no intracranial hemorrhage. CT abdomen and pelvis: Distended gallbladder, calcification either anterior or within the pancreatic tail, old granulomatous disease in the spleen. PCP: Unknown Allergy: Ethanol, guaifenesin PAST MEDICAL HISTORY: Anxiety, HIV,Syphilis unknown treatment , non compliance with medication. Surgical History: Denies all surgeries Family History: Family hx of DM Smoker: Cigarettes, Less Than 1 Pack/Day, smoke hashis, amphetamine,weed daily Alcohol: Occasionally Drugs: Marijuana, Methamphetamine Lives In: Home with aunt. PCP: DR. Schmitz [facility] COURSE: Patient admitted due to acute toxic metabolic encephalopathy secondary to substance use /sepsis due to pneumonia. During admission patient was altered, confused, disoriented and response to loud voice, hypotensive and MAP<65, started pressor. CT abdomen and pelvis showed Right lower lobe consolidation which could reflect pneumonia in the appropriate clinical setting. Diffuse stool throughout the colon. Old granulomatous disease in the spleen. Distended gallbladder and Calcifications either anterior to or within the pancreatic tail. CT HEAD SHOWED no intracranial hemorrhage, extra - axial collection, mass effect, midline shift. MRI brain negative for any intracranial pathology. X-ray chest showed Cardiac silhouette is not enlarged. Pulmonary hilar prominence is noted, particularly on the right. Patchy infiltrates are noted in the right lung base. Patient treated with IV antibiotic and symptoms improving. Off any kind of pressors. STD screening shows positive for HIV, gonorrhea, syphilis, trachomatis. Patient was treated syphilis previously. ID recommended continue IV antibiotic, [place] culture, IM ceftriaxone single dose for gonorrhea, CD4 count and viral load ( Last CD4 count was in 224 and was 221. CD4% was 10.5 (2023)), doxycycline 100 mg b.i.d. for chlamydia, confirm with primary department if he was appropriately treated back in september. Back in september 2024 RPR titers were 1:256, now is 1:64 which show a 4 fold drop, it can be considered treated at this time. No need prophylaxis at this time. Patient left AMA and signed refusal of treatment and AMA form. Hep-Lock and all other lines removed. Patient AAO x4, of capacity, demonstrates understanding of all risks including worsening risks of morbidity and mortality, which were explained in layman's term, as indicated by ability to perform teach - back by RN. Ample time given for questions and concerns which were answered /addressed. Patient was counseled extensively and was encouraged to return to ER if alarming symptoms presence. DISCUSSED WITH DR. BUITRAGO, PATIENT AND NURSE. MORE THAN 49 MINUTE SPENT. Operations or Procedures ORDERING PHYSICIAN: YVAN GARCIA MD PROCEDURE(s): ABPLIV - CT AB PEL WITH IV CON ONLY REASON: abd pain, fever ORDER NUMBER(s): [id number], ACCESSION NUMBER(s): [id number] Exam: CT CT AB PEL WITH IV CON ONLY History: abd pain, fever Comparison Study: Scan of the abdomen pelvis performed on 05/23/2023 Technique: Multidetector spiral CT of the abdomen was performed from lung bases to pubic symphysis. Axial imaging was performed with intravenous contrast following the uneventful administration of 100 ml Omnipaque 300. Coronal and sagittal multiplanar reformats were obtained from the axial data set by the technologist. Radiation Dose : 1. Abdomen/Pelvis: CTDIvol 5.1 mGy, DLP 300.8 mGy*cm. Findings: There is artifact from the patient's arms which limits evaluation. Lung Bases: There is right lower lobe consolidation. Visualized portions of the heart and pericardium are unremarkable. Liver: The liver is normal in size. No focal lesions. Gallbladder and Biliary Tree: The gallbladder is distended. No intrahepatic or extrahepatic biliary ductal dilatation. Spleen: Multiple splenic calcifications noted. Pancreas: The pancreas enhances normally without evidence of mass. No pancreatic ductal dilatation. Calcifications noted either anterior to or within the pancreatic body. Adrenal Glands: Unremarkable Kidneys: Kidneys enhance symmetrically. No calculi or hydronephrosis. GI tract: The stomach is grossly normal in appearance.. No evidence of small bowel wall thickening or abnormal dilatation to suggest bowel obstruction. Diffuse stool throughout the colon. The appendix is not visualized, however no inflammatory changes in the right lower quadrant to suggest acute appendicitis. Peritoneum/mesentery/retroperitoneum. No evidence of free intraperitoneal air. No ascites. No evidence of suspicious lymphadenopathy. Abdominal Wall: Unremarkable. Vasculature: Abdominal aorta and main branches are unremarkable. Normal vascular enhancement. Urinary Bladder: There is a Sykes catheter in the urinary bladder. Pelvic Organs: Unremarkable Musculoskeletal: No aggressive focal bony lesions, acute fractures or dislocation. IMPRESSION: 1. Study limited by patient's arms which causes artifact. 2. Right lower lobe consolidation which could reflect pneumonia in the appropriate clinical setting. 3. Diffuse stool throughout the colon. 4. Old granulomatous disease in the spleen. 5. Distended gallbladder. 6. Calcifications either anterior to or within the pancreatic tail. Findings could reflect sequelae of chronic pancreatitis if within the pancreas. ATED BY: HILDA GARCIA MD DICTATED DATE/TIME: 03/04/25 0413 ORDERING PHYSICIAN: YVAN GARCIA MD PROCEDURE(s): HWOCT - HEAD WITHOUT CONTRAST REASON: ALOC, fever ORDER NUMBER(s): [id number], ACCESSION NUMBER(s): [id number] EXAM: CT HEAD WITHOUT CONTRAST INDICATION: ALOC, fever TECHNIQUE: CT of the head without intravenous contrast. Radiation Dose : 1. Head: CT Dose: CTDI volume is 50.77 mGy. Dose-length product is 1098.92 mGy*cm The dose indicators for CT are the volume Computed Tomography (CT) Dose Index (CTDIvol) and the Dose Length Product (DLP), and are measured in units of mGy and mGy-cm, respectively. These indicators are not patient dose, but values generated from the CT scanner acquisition factors. The report includes radiation exposure data for exposures received during this examination. COMPARISON: HEAD WITHOUT CONTRAST on DOS: 12/01/20 FINDINGS: There is no evidence of acute intracranial hemorrhage, extra-axial collection, mass effect, midline shift, herniation or hydrocephalus. The ventricles, sulci and cisterns are age appropriate. The rodriguez-white differentiation is intact. Left sphenoid and ethmoid mucosal sinus disease. The remaining visualized paranasal sinuses and mastoid air cells are clear. The surrounding soft tissues and osseous structures are unremarkable. IMPRESSION: 1. No acute intracranial abnormality. Radiation optimization: All CT scans at this facility use at least one of these dose optimization techniques: automated exposure control mA and/or kV adjustment per patient size (includes targeted exams where dose is matched to clinical indication) or iterative reconstruction. ATED BY: PINEDA LOUISE MD DICTATED DATE/TIME: 03/04/25 0341 ORDERING PHYSICIAN: SEAN BULLARD PROCEDURE(s): CXRP - CHEST PORTABLE REASON: Rule out cardiopulmonary DX ORDER NUMBER(s): [id number], ACCESSION NUMBER(s): [id number] INDICATION: Rule out cardiopulmonary DX TECHNIQUE: Frontal view of the chest. COMPARISON: XY CHEST PORTABLE on DOS: 05/23/23, CHEST WITHOUT CONTRAST on DOS: 12/01/20, XY CHEST PORTABLE on DOS: 05/23/23 FINDINGS: Cardiac silhouette is not enlarged. Pulmonary hilar prominence is noted, particularly on the right. Patchy infiltrates are noted in the right lung base. No large effusions. Consider CT for further evaluation of the right suprahilar region. IMPRESSION: No interval improvement ATED BY: CUCA SOLIS MD DICTATED DATE/TIME: 03/04/25 1231 ORDERING PHYSICIAN: JOSEFINA MONTENEGRO PROCEDURE(s): MBHL - BRAIN HEAD WO CONTRAST REASON: ENCEPHILITIS ORDER NUMBER(s): [id number], ACCESSION NUMBER(s): [id number] EXAMINATION: MRI BRAIN HEAD WO CONTRAST INDICATION: ENCEPHILITIS COMPARISON: CT HEAD WITHOUT CONTRAST on DOS: 03/04/25, HEAD WITHOUT CONTRAST on DOS: 12/01/20 TECHNIQUE: Multiplanar, multisequence magnetic resonance imaging of the brain was performed without the use of intravenous contrast. FINDINGS: No evidence of acute or remote infarct. No intracranial hemorrhage. No mass effect. There is periventricular/deep white matter T2/FLAIR hyperintensity is nonspecific, but most commonly associated with chronic microvascular disease. The ventricles and sulci are normal in size for age. Clear basal cisterns. Flow voids in the major intracranial vessels are maintained. No abnormality of the orbits. Paranasal sinuses and mastoid air cells are clear. No abnormality of the visualized osseous structures and extracranial soft tissues. IMPRESSION: No acute infarct, intracranial hemorrhage, mass effect, or hydrocephalus. ATED BY: CUCA SOLIS MD DICTATED DATE/TIME: 03/05/25 1054 Condition at Discharge: Undetermined Final Diagnosis/Problems List Acute toxic metabolic encephalopathy secondary to substance use Sepsis due to pneumonia likely Gram-positive or Gram-negative bacteria Acute hypoxic respiratory failure likely due to aspiration pneumonia HIV positive Syphilis infection Positive Neisseria gonorrhea and chlamydia trachomatis Questionable meningitis Ruled out acute stroke Old granulomatous disease in the spleen. Distended gallbladder. Calcifications either anterior to or within the pancreatic tail. H/o Cholelithiasis Transaminitis Complicated cystitis TIFFANY due to vasomotor nephropathy Hypokalemia SUBSTANCE ABUSE DISORDER NONCOMPLIANCE WITH MEDICAL MANAGEMENT Discharge Disposition: AMA Discharge Instruct/Medications Scheduled Docusate Sodium (Colace), 1 CAP PO BID Penicillin G Benzathine (Bicillin l-A), 2,400,000 UNIT IM QWEEKLY, (Reported) Scheduled PRN Lactulose (Lactulose), 10 GM PO BIDP PRN Miscellaneous Medications Cabotegravir & Rilpivirine (Cabenuva 600 & 900 mg/3Ml), 1 MAGY IM, (Reported) Discharge Statement: "Patient was advised to return to the ER or call 911 if any headaches, dizziness, shortness of breath, chest pain, abdominal pain, bleeding, fevers, or worsening of medical condition. Patient was counseled about treatment plan, medications, possible side effects, patientverbalized understanding. All questions were answered to the best of my ability. This discharge took greater then 30 minutes in planning, reviewing documentation, counseling the patient, and discussing with other team members." ASSESSMENT ASSESSMENT Assessment Date of Service: Mar 06, 2025 Billing Provider: JOSE ANTONIO ARIZMENDI MD Common Visit Codes: 39031-EAT/OBS DISCH DAY >30min SEAN BULLARD RESIDENT Mar 06, 2025 17:46 JOSE ANTONIO ARIZMENDI MD Mar 08, 2025 11:32
[2025-03-06] MEDS ORDERED: DOXYCYCLINE 100 MG TAB/CAP PO SCH (22:00)
[2025-03-07 12:45] LABS: Hepatitis C Antibody Negative (Negative)
[2025-03-07 12:46] LABS: Hepatitis B Surface Antigen Negative (Negative)
== END 2025-03-06 15:30 | disposition left against medical advice (07) | DRG 720 ==
LOC: ER 01:29 → EDBD 01:29 → OVERFLOW 04:57 → TELE-CENTR 03-05 11:13 → CENTRAL 03-06 03:29
PROVIDERS: ADMIT Internal Medicine; ATTEND Internal Medicine
DX: A41.59 Other Gram-negative sepsis (principal); N17.0 Acute kidney failure with tubular necrosis; G92.8 Other toxic encephalopathy; J96.01 Acute respiratory failure with hypoxia; J15.69 Pneumonia due to other Gram-negative bacteria; J69.0 Pneumonitis due to inhalation of food and vomit; M62.82 Rhabdomyolysis; G03.9 Meningitis, unspecified; J15.9 Unspecified bacterial pneumonia; A53.9 Syphilis, unspecified; F41.9 Anxiety disorder, unspecified; F17.210 Nicotine dependence, cigarettes, uncomplicated; J98.4 Other disorders of lung; T50.995A Adverse effect of other drugs, medicaments and biological substances, initial encounter; E83.51 Hypocalcemia; E87.6 Hypokalemia; N30.90 Cystitis, unspecified without hematuria; K82.8 Other specified diseases of gallbladder; R74.01 Elevation of levels of liver transaminase levels; Z79.899 Other long term (current) drug therapy; Z91.199 Patient's noncompliance with other medical treatment and regimen due to unspecified reason; Z83.3 Family history of diabetes mellitus; Y92.89 Other specified places as the place of occurrence of the external cause
CPT/HCPCS: 36415; 70450; 70551; 71045; 74177; 80053; 80061; 80074; 80307; 80320; 81001; 82140; 82306; 82550; 82607; 82962; 83036; 83605; 83615; 83690; 83735; 84100; 84439; 84443; 84480; 85025; 85610; 85730; 86592; 86593; 86703; 86706; 86780; 86803; 87040; 87081; 87086; 87340; 87389; 87426; 87804; 93005; 93306; 96365; 99291; G0378; J0131; J0692; J0696; J1100; J2543; J3480; J7060

== ENCOUNTER 2025-04-19 10:53 | Emergency (ER) | payer MEDICAID ==
[~2025-04-19] VITALS: Ht 172.7 cm; Wt 73.0 kg
[~2025-04-19 10:53] MED LIST changes: +CABO1SUS IM; +[UNRECOGNIZED DRUG - CODE] IM
[2025-04-19] MEDS: HALOPERIDOL LACTATE 5 MG/ML INJ VIAL ONE (11:36)
[2025-04-19] MEDS: SODIUM CHLORIDE 0.9% 1,000 ML IV ONE (11:47)
--- NOTE | 2025-04-19 11:47 | ED.PDOC ---
History of Present Illness HPI Comments 34-year-old male brought in by ambulance prior medical history of liver failure, kidney failure, anxiety in the chief complaint of testicular pain. Patient reports on recently being to [place] for which was diagnosed with epididymitis status post having and was without protection. Patient states on having testicular pain for four days, as well as having syncopal episodes and emesis. Denies any other symptoms at this time. Denies chills, fever, /D, SOB, CP. No other associated symptoms, modifiers, recent injuries or sick contacts present at this time. Chief Complaint: Testicle Pain Time Seen by MD: 11:30 Primary Care Provider: NONE Reviewed Notes: Nurses Notes, Medications, Allergies Allergies: Coded Allergies: Ethanol (Verified Allergy, Unknown, 08/12/22) Guaifenesin (Verified Allergy, Unknown, 08/12/22) Home Meds Active Scripts Docusate Sodium (Colace) 100 Mg Cap, 1 CAP PO BID, #30 CAP Prov:CARROLL CALDERA PAC 11/13/22 Lactulose (Lactulose) 10 Gm/15 Ml Y[place], 10 GM PO BIDP PRN, #150 ML Prov:CARROLL CALDERA PAC 11/13/22 Reported Medications Penicillin G Benzathine (Bicillin l-A) 2,400,000 Unit/4 Ml Inj, [id number] UNIT IM QWEEKLY, INJ 03/05/25 Cabotegravir & Rilpivirine (Cabenuva 600 & 900 mg/3Ml) 1 Juliette Juliette, 1 JULIETTE IM, ML 03/05/25 Information Source: Patient Mode of Arrival: EMS Severity: Moderate Timing: Days Duration: Since onset, Days Prehospital treatment: None Past Medical History PAST MEDICAL HISTORY: Anxiety, Liver (Failure) Past Medical History (Other): Kidney failure Surgical History: Denies all surgeries Family History Family History: Reviewed,noncontributory to illness, Unknown Social History Smoker: Unknown Alcohol: Unknown Drugs: Unknown Lives In: Home Constitutional: denies: chills, diaphoresis, fatigue, fever, malaise, sweats, weakness, others EENTM: denies: blurred vision, double vision, ear bleeding, ear discharge, ear drainage, ear pain, ear ringing, eye pain, eye redness, hearing loss, mouth pain, mouth swelling, nasal discharge, nose bleeding, nose congestion, nose pain, photophobia, tearing, throat pain, throat swelling, voice changes, others Respiratory: denies: cough, hemoptysis, orthopnea, SOB at rest, shortness of breath, SOB with excertion, stridor, wheezing, others Cardiovascular: reports: syncope; denies: chest pain, dizzy spells, diaphoresis, Dyspnea on exertion, edema, irregular heart beat, left arm pain, lightheadedness, palpitations, PND, others Gastrointestinal: reports: nausea, vomiting; denies: abdomen distended, abdominal pain, blood streaked bowels, constipated, diarrhea, dysphagia, difficulty swallowing, hematemesis, melena, poor appetite, poor fluid intake, rectal bleeding, rectal pain, others Genitourinary: reports: testicle pain; denies: burning, dysuria, flank pain, frequency, hematuria, incontinence, penile discharge, penile sore, pain, testicle swelling, urgency, others Neurological: denies: dizziness, fainting, headache, left sided numbness, left sided weakness, numbness, paresthesia, pre-existing deficit, right sided numbness, right sided weakness, seizure, speech problems, tingling, tremors, weakness, others Musculoskeletal: denies: back pain, gout, joint pain, joint swelling, muscle pain, muscle stiffness, neck pain, others Integumetry: denies: bruises, change in color, change in hair/nails, dryness, laceration, lesions, lumps, rash, wounds, others Allergic/Immunocompromised: denies: Difficulty Healing, Frequent Infections, Hives, Itching, others Hematologic/Lymphatic: denies: anemia, blood clots, easy bleeding, easy bruising, swollen glands, others Endocrine: denies: excessive hunger, excessive sweating, excessive thirst, excessive urination, flushing, intolerance to cold, intolerance to heat, unexplained weight gain, unexplained weight loss, others Psychiatric: denies: anxiety, bipolar disorder, depression, hopeless, panic disorder, schizophrenia, sleepless, suicidal, others All Other Systems: Reviewed and Negative Physical Exam Exam Comments Appears uncomfortable General Appearance: No Apparent Distress, Normal HEENT: Normal ENT Inspection, Pharynx Normal, TMs Normal Neck: Full Range of Motion, Non-Tender, Normal, Normal Inspection Respiratory: Chest Non-Tender, Lungs Clear, No Accessory Muscle Use, No Re spiratory Distress, Normal Breath Sounds Cardiovascular: No Edema, No JVD, No Murmur, No Gallop, Normal Peripheral Pulses, Regular Rate/Rhythm Breast Exam: Deferred Gastrointestinal: No Organomegaly, Non Tender, No Pulsatile Mass, Normal Bowel Sounds, Soft Genitalia: Deferred Pelvic: Deferred Rectal: Deferred Extremities: No calf tenderness, Normal capillary refill, Normal inspection, Normal range of motion, Non-tender, No pedal edema Musculoskeletal : Apperance: Normal Neurologic: Alert, employment specialist/program manager II-XII nml as Tested, No Motor Deficits, Normal Affect, Normal Mood, No Sensory Deficits Cerebellar Function: Normal Reflexes: Normal Skin: Dry, Normal Color, Warm Lymphatic: No Adenopathy Was a procedure done? Was a procedure done?: No Differential Dx Considerations may include: UTI, dysuria, electrolyte abnormality, infectious etiology, STI X-Ray, Labs, Meds, VS Vital Signs Date Time Temp Pulse Resp B/P (MAP) Pulse Ox O2 Delivery O2 Flow Rate FiO2 04/19/25 11:49 98.0 100 18 125/73 98 98.0 Lab Test 04/19/25 12:05 04/19/25 11:35 Range/Units White Blood Count 8.7 4.4-10.8 10^3/uL Red Blood Count 4.50 4.5-5.90 10^6/uL Hemoglobin 13.6 13.5-17.5 g/dL Hematocrit 40.0 L 41.0-53.0 % Mean Corpuscular Volume 88.9 80.0-100.0 fL Mean Corpuscular Hemoglobin 30.3 28.0-32.0 pg Mean Corpuscular Hemoglobin Concent 34.1 32.0-36.0 g/dL Red Cell Distribution Width 13.3 11.8-14.3 % Platelet Count 207 140-450 10^3/uL Mean Platelet Volume 6.5 L 6.9-10.8 fL Neutrophils (%) (Auto) 60.1 37.0-80.0 % Lymphocytes (%) (Auto) 26.9 10.0-50.0 % Monocytes (%) (Auto) 11.7 0.0-12.0 % Eosinophils (%) (Auto) 0.6 0.0-7.0 % Basophils (%) (Auto) 0.7 0.0-2.0 % Neutrophils # (Auto) 5.2 1.6-8.6 10 ^3/uL Lymphocytes # (Auto) 2.3 0.4-5.4 10 ^3/uL Monocytes # (Auto) 1.0 0-1.3 10 ^3/uL Eosinophils # (Auto) 0.1 0-0.8 10 ^3/uL Basophils # (Auto) 0.1 0-0.2 10 ^3/uL Nucleated Red Blood Cells 0.1 % Sodium Level 135 L 136-145 mmol/L Potassium Level 4.1 3.5-5.1 mmol/L Chloride Level 100 98-107 mmol/L Carbon Dioxide Level 26 20-31 mmol/L Anion Gap 9 5-15 Blood Urea Nitrogen 7 L 9-23 mg/dL Creatinine 0.82 0.700-1.30 mg/dL Glomerular Filtration Rate Calc 117 >90 mL/min BUN/Creatinine Ratio 8.5 L 10.0-20.0 Serum Glucose 80 74-106 mg/dL Calcium Level 8.6 L 8.7-10.4 mg/dL Urine Color Light-yellow Yellow Urine Clarity Turbid H Clear Urine pH 7.0 5.0-9.0 Urine Specific [place] 1.015 1.001-1.035 Urine Protein Trace H Negative Urine Ketones Negative Negative Urine Blood Trace H Negative /uL Urine Nitrite Negative Negative Urine Bilirubin Negative Negative Urine Urobilinogen Normal Negative mg/dL Urine Leukocyte Esterase 3+ Negative /uL Urine RBC 56 0 - 3 /hpf Urine Microscopic WBC 217 H 0-3 /HPF Urine Squamous Epithelial Cells None seen <5 /hpf Urine Bacteria None seen None Seen /hpf Urine Hyaline Casts Few 0 - 2 /lpf Urine Mucus Few None Seen Urine Glucose Normal Normal mg/dL Chlamydia trachomatis (ANGÉLICA) Pending Neisseria gonorrhoeae (ANGÉLICA) Pending Current Medications Medications (Trade) Dose Ordered Sig/Jose Route Start Time Stop Time Status Last Admin Sodium Chloride 1,000 ml @ 1,000 mls/hr Q1H ONCE IV 04/19/25 11:30 04/19/25 12:29 DC 04/19/25 11:47 Ketorolac Tromethamine (Toradol Injection) 15 mg ONCE ONCE IV 04/19/25 11:30 04/19/25 11:31 DC 04/19/25 11:48 Haloperidol Lactate (Haldol) 10 mg ONCE ONCE IM 04/19/25 11:45 04/19/25 11:46 DC 04/19/25 11:48 Time of 1ST Reevaluation: 12:00 Reevaluation 1ST: Unchanged Patient Education/Counseling: Diagnosis, Treatment, Prognosis Family Education/Counseling: No Family Present SEPSIS Sepsis Screen Physician Orders Testicular Ultrasound (04/19/25 11:22) Chlamydia/Gc Amplification (04/19/25 11:22) Ceftriaxone 1gm/50ml (Rocephin) (04/19/25 15:00) Vital Signs Date Time Temp Pulse Resp B/P (MAP) Pulse Ox O2 Delivery O2 Flow Rate FiO2 04/19/25 11:49 98.0 100 18 125/73 98 98.0 Laboratory Tests Test 04/19/25 12:05 White Blood Count 8.7 10^3/uL (4.4-10.8) Medications Medications Dose Ordered Sig/Jose Route Start Time Stop Time Status Last Admin Dose Admin Haloperidol Lactate 10 mg ONCE ONCE IM 04/19/25 11:45 04/19/25 11:46 DC 04/19/25 11:48 Ketorolac Tromethamine 15 mg ONCE ONCE IV 04/19/25 11:30 04/19/25 11:31 DC 04/19/25 11:48 Sodium Chloride 1,000 ml @ 1,000 mls/hr Q1H ONCE IV 04/19/25 11:30 04/19/25 12:29 DC 04/19/25 11:47 Departure 1 Departure Time of Disposition: 15:20 (Patient with bilateral epididymitis. We will cover patient with antibiotics and discharge patient home with outpatient follow up) Impression: Primary Impression: Epididymitis Additional Impression: Testicular pain Disposition: 01 HOME / SELF CARE / HOMELESS Condition: Stable Referrals: KHARI MORALES MD Additional Instructions: You have a testicular infection. You were prescribed antibiotics. Please take as directed. You were referred to urologist. Please call for an appointment. For pain you can take the followinam: Ibuprofen 400mg with food Noon: Acetaminophen 1000mg 4pm: Ibuprofen 400mg with food 8pm: Acetaminophen 1000mg You should follow up with your regular doctor within one week to ensure you are doing better. If your symptoms worsen or you have any other concerns then please return to the ER. e-Prescriptions Doxycycline Hyclate (DOXYCYCLINE HYCLATE) 100 Mg Tab 1 TAB PO BID for 7 Days, #14 TAB Prov: CEFERINO HILL MD 04/19/25 Levofloxacin Hemihydrate (LEVAQUIN 500 MG) 500 Mg Tab 750 MG PO DAILY for 7 Days, #11 TAB Prov: CEFERINO HILL MD 04/19/25 Discharged With: Self Critical Care Note Critical Care Time?: No Stability Stability form required: No I personally scribed for CEFERINO HILL MD ([email or web address]) on 04/19/25 at 11:47. Electronically submitted by Jah Hurd ([email or web address]). CEFERINO HILL MD Apr 19, 2025 11:47
[2025-04-19] MEDS: KETOROLAC TROMETH 30 MG/ML 1ML VIAL IV ONE (11:48)
[2025-04-19] MEDS: HALOPERIDOL LACTATE 5 MG/ML INJ VIAL IM ONE (11:48)
[2025-04-19 12:28] LABS: Urine Protein, UAD TRACE (Negative)
[2025-04-19 12:48] LABS: Hematocrit 40.0 % (41.0-53.0); Hemoglobin 13.6 g/dL (13.5-17.5); Mean Corpuscular Hemoglobin 30.3 pg (28.0-32.0); Mean Corpuscular Volume 88.9 fL (80.0-100.0); Nucleated Red Blood Cells % 0.1 %
[2025-04-19 12:58] LABS: Chloride 100 mmol/L (98-107); Potassium 4.1 mmol/L (3.5-5.1)
[2025-04-19 12:59] LABS: Anion Gap 9 (5-15); Carbon Dioxide 26 mmol/L (20-31)
[2025-04-19 13:02] LABS: Calcium 8.6 mg/dL (8.7-10.4); Sodium 135 mmol/L (136-145)
[2025-04-19 13:04] LABS: BUN/Creatinine Ratio 8.5 (10.0-20.0); Glucose 80 mg/dL (74-106)
--- NOTE | 2025-04-19 13:07 | DVH ---
ULTRASOUND OF SCROTUM AND CONTENTS. INDICATION: testicular pain COMPARISON: TESTICULAR ULTRASOUND on DOS: 11/07/20 TECHNIQUE: Multiple real-time grayscale sonographic and color and duplex Doppler images of the scrotum and its contents were obtained. FINDINGS: RIGHT TESTICLE: Measures 4 X 2.2 X 3.1 cm. VOLUME OF THE RIGHT TESTICLE IS 15.2 ML. Hydrocele is noted on the right. Anechoic lesion right epididymis measuring 1 x 0.5 x 0.4 cm Complex mass in the left epididymis measuring 1.5 x 1.7 x 1.5 cm. LEFT TESTICLE: Measures 4.2 x 2.7 x 4.3 cm. Volume of the left testicle is 26.6 mL. Hydrocele is noted on the left. Both testicles demonstrate homogeneous echotexture without evidence of focal lesions. The right epididymal head measures 1.12 cm. The left epididymal head measures 1.58 cm. Increased vascularity is noted to the epididymis bilaterally. Findings suggest epididymitis. Subsequent color and duplex Doppler interrogation of the testes demonstrated symmetric normal vascular flow to both testicles. Hyperemia of the epididymis bilaterally focal areas of hyperemia were seen. IMPRESSION: 1. Bilateral epididymitis. 2. Right epididymal cyst 3. Bilateral hydrocele.
[2025-04-19 13:09] LABS: Blood Urea Nitrogen 7 mg/dL (9-23)
[2025-04-19] MEDS ORDERED: DOXY-286 PO (15:24)
[2025-04-19] MEDS ORDERED: LEVO500T91 PO (15:24)
[2025-04-19] MEDS: DOXYCYCLINE 100 MG TAB/CAP PO ONE (16:34)
[2025-04-19 18:08] VITALS: BP 120/67; PULSE 88; RESP 20; TEMP 98.6; O2SAT 99
[2025-04-21 20:07] LABS: Chlamydia Trachomatis, NAA Negative (Negative); Neisseria gonorrhoeae, NAA Negative (Negative)
== END 2025-04-19 18:12 | disposition home or self-care (01) ==
LOC: EDBD 10:53 → ER 10:53
DX: N45.1 Epididymitis (principal); N50.819 Testicular pain, unspecified; F41.9 Anxiety disorder, unspecified; Z79.899 Other long term (current) drug therapy
CPT/HCPCS: 36415; 76870; 80048; 81001; 85025; 87491; 87591; 96361; 96365; 96372; 96375; 99285; J0696; J1630; J1885; J7030